=== PATIENT | male | born 1965 | race Caucasian/White ===

== ENCOUNTER 2022-08-04 02:58 | Observation (INO) | payer MEDICARE ==
[2022-08-04] MEDS ORDERED: Acetaminophen-Codeine 300-30mg TAB PO STA (03:37)
[2022-08-04] MEDS ORDERED: SULFAMETHOX-TMP 800-160MG 1 EACH TAB PO STA (03:37)
[2022-08-04] MEDS ORDERED: ACETAMINOPHEN TAB 325 MG TAB PO STA (03:37)
[2022-08-04] MEDS ORDERED: IBUPROFEN 800 MG TAB PO STA (03:37)
[2022-08-04] MEDS ORDERED: MORPHINE SULFATE 4 MG/ML SYRINGE IV STA (03:38)
[2022-08-04] MEDS ORDERED: SODIUM CHLORIDE 0.9% 1,000 ML IV STA ×2 (03:38)
[2022-08-04] MEDS ORDERED: KETOROLAC 15 MG/ML 1 ML VIAL IVP STA (03:40)
--- NOTE | 2022-08-04 04:02 | ED ---
Back Pain HPI - General Chief Complaint: Back Pain/Injury Stated Complaint: Back Pain Time Seen by Provider: 08/04/22 03:20 Source: patient, RN notes reviewed, old records reviewed Limitations: no limitations - History of Present Illness Initial Comments: This is a 56-year-old male to the emergency department for evaluation presented today for evaluation regards to severe back pain history of back surgery and acute on chronic back pain today. Patient states he fell 2 days ago and pain has been getting worse over the last 2 days increased anxiety and recently off pressure medication was increased severe depression and anxiety. Back pain is severe with numbness until he down both legs to the point was having difficulty moving them. No loss of bowel or bladder. Patient does not have physician care in the area as he is new to the area he has no primary care with difficulty finding primary care as well as specialty care. Patient has no psychiatrist or psychiatry care and no pain control care of orthopedic care MD Complaint: back pain, back injury, fall (2 days ago) -: year(s) (Back pain for years) Similar Symptoms Previously: Yes Place: home Radiation: buttocks, left leg, right leg Severity: moderate Severity scale (1-10): 7 Improves With: none Worsens With: movement, sitting upright Context: fall Associated Symptoms: denies other symptoms - Related Data Allergies Allergy/AdvReac Type Severity Reaction Status Date / Time Penicillins Allergy Rash/Hives Verified 08/04/22 03:41 Review of Systems ROS Statement: Those systems with pertinent positive or pertinent negative responses have been documented in the HPI. ROS Other: All systems not noted in ROS Statement are negative. Past Medical History Past Medical History: Hypertension, Musculoskeletal Disorder Additional Past Medical History / Comment(s): DEPRESSION History of Any Multi-Drug Resistant Organisms: None Reported Past Surgical History: Back Surgery Past Psychological History: Depression Smoking Status: Never smoker Past Alcohol Use History: Daily Past Drug Use History: Marijuana General Exam Limitations: no limitations General appearance: alert, in no apparent distress Head exam: Present: atraumatic, normocephalic, normal inspection Eye exam: Present: normal appearance, PERRL, EOMI. Absent: scleral icterus, conjunctival injection, periorbital swelling ENT exam: Present: normal exam, mucous membranes moist Neck exam: Present: normal inspection. Absent: tenderness, meningismus, lymphadenopathy Respiratory exam: Present: normal lung sounds bilaterally. Absent: respiratory distress, wheezes, rales, rhonchi, stridor Cardiovascular Exam: Present: regular rate, normal rhythm, normal heart sounds. Absent: systolic murmur, diastolic murmur, rubs, gallop, clicks GI/Abdominal exam: Present: soft, normal bowel sounds. Absent: distended, tenderness, guarding, rebound, rigid Extremities exam: Present: normal inspection, full ROM, normal capillary refill. Absent: tenderness, pedal edema, joint swelling, calf tenderness Back exam: Present: normal inspection Neurological exam: Present: alert, oriented X3, CN II-XII intact Psychiatric exam: Present: normal affect, normal mood Skin exam: Present: warm, dry, intact, normal color. Absent: rash Course Vital Signs 08/04/22 03:04 Temperature 97.8 F Pulse Rate 95 Respiratory 16 Rate Blood Pressure 153/103 O2 Sat by Pulse 94 L Oximetry - Reevaluation(s) Reevaluation #1: 08/04/22 04:11 medical record is reviewed Reevaluation #2: 08/04/22 04:11 Symptoms are improved Reevaluation #3: 08/04/22 04:12 Patient informed results and questions answered Reevaluation #4: 08/04/22 04:12 Differential Back Pain: Strain, zoster, cauda equina syndrome, epidural abscess, vertebral osteomyelitis, discitis, fracture, subluxation, disc herniation, DJD, spinal stenosis, dissection, AAA, pancreatitis, peptic ulcer disease, pyelonephritis, kidney stone, this is not meant to be an all-inclusive list. Reevaluation #5: 08/04/22 04:12 Was pt. sent in by a medical professional or institution? @ -no Did you speak to anyone other than the patient for history? @ -no Did you review nursing and triage notes? @ -agree Were old charts reviewed? @ -no Differential Diagnosis? @ -prior EKG interpreted by me (3pts min.)? @ -[none] X-rays interpreted by me (1pt min.)? @ -[none] CT interpreted by me (1pt min.)? @ -[none] U/S interpreted by me (1pt. min.)? @ -[none] What testing was considered but not performed? (CT, X-rays, U/S, labs)? Why? @ no What meds were considered but not given? Why? @ -[none] Did you discuss the management of the patient with other professionals? @ -no Did you reconcile home meds? @ -[none] Was smoking cessation discussed for >3mins.? @ -[none] Was critical care preformed (if so, how long)? @ -[none] Were there social determinants of health that impacted care today? How? (Homelessness, low income, unemployed, alcoholism, drug addiction, transportation, low edu. Level, literacy, decrease access to med. care, fpc, rehab)? @ -no Was there de-escalation of care discussed even if they declined? (Discuss DNR or withdrawal of care, Hospice)? @ -no What co-morbidities impacted this encounter? (DM, HTN, Smoking, COPD, CAD, Cancer, CVA, Hep., AIDS, mental health diagnosis, sleep apnea, morbid obesity)? @ -no Was patient admitted / discharged? @ -admit Undiagnosed new problem with uncertain prognosis? @ -[none] Drug Therapy requiring intensive monitoring for toxicity (Heparin, Nitro, Insulin, Cardizem)? @ -[none] Were any procedures done? @ -[none] Diagnosis/symptom? @ -[default] Acute, or Chronic, or Acute on Chronic? @ -[default] Uncomplicated (without systemic symptoms) or Complicated (systemic symptoms)? @ -[default] Side effects of treatment? @ -[none] Exacerbation, Progression, or Severe Exacerbation] @ -[no] Poses a threat to life or bodily function? @ -[no] - Consultations Consultation #1: Spoke with admitting physician who agree to admit this patient Medical Decision Making - Medical Decision Making 56 male to be admitted for back pain chronic back pain increasing weakness severe depression for psychiatric evaluation in hopes of finding primary care provider and pain control - Lab Data Result diagrams: 08/04/22 04:04 08/04/22 04:04 Lab Results 08/04/22 08/04/22 08/04/22 Range/Units 04:04 04:04 04:04 WBC 4.8 (3.8-10.6) k/uL RBC 4.56 (4.30-5.90) m/uL Hgb 15.5 (13.0-17.5) gm/dL Hct 44.4 (39.0-53.0) % MCV 97.4 (80.0-100.0) fL MCH 34.1 (25.0-35.0) pg MCHC 35.0 (31.0-37.0) g/dL RDW 11.9 (11.5-15.5) % Plt Count 153 (150-450) k/uL MPV 7.6 Neutrophils % 54 % Lymphocytes % 36 % Monocytes % 4 % Eosinophils % 2 % Basophils % 2 % Neutrophils # 2.6 (1.3-7.7) k/uL Lymphocytes # 1.7 (1.0-4.8) k/uL Monocytes # 0.2 (0-1.0) k/uL Eosinophils # 0.1 (0-0.7) k/uL Basophils # 0.1 (0-0.2) k/uL PT 11.6 (9.0-12.0) sec INR 1.1 (<1.2) APTT 26.8 (22.0-30.0) sec Sodium 144 (137-145) mmol/L Potassium 4.3 (3.5-5.1) mmol/L Chloride 108 H (98-107) mmol/L Carbon Dioxide 23 (22-30) mmol/L Anion Gap 13 mmol/L BUN 8 L (9-20) mg/dL Creatinine 0.61 L (0.66-1.25) mg/dL Est GFR (CKD-EPI)AfAm >90 (>60 ml/min/1.73 sqM) Est GFR (CKD-EPI)NonAf >90 (>60 ml/min/1.73 sqM) Glucose 122 H (74-99) mg/dL Calcium 8.8 (8.4-10.2) mg/dL Phosphorus 3.1 (2.5-4.5) mg/dL Magnesium 1.9 (1.6-2.3) mg/dL Total Bilirubin 0.6 (0.2-1.3) mg/dL AST 77 H (17-59) U/L ALT 42 (4-49) U/L Alkaline Phosphatase 105 (38-126) U/L Total Protein 8.2 (6.3-8.2) g/dL Albumin 4.5 (3.5-5.0) g/dL Serum Alcohol 271 H* mg/dL - Radiology Data Radiology results: report reviewed (CT lumbar spine), image reviewed Disposition Clinical Impression: Mechanical back pain, Sciatica, Mid back pain, Lumbar radiculopathy, Alcohol intoxication Disposition: ADMITTED IP TO THIS HOSP Condition: Fair Is patient prescribed a controlled substance at d/c from ED?: No Time of Disposition: 04:25
[2022-08-04 04:10] LABS: Basophils # (A) 0.1 k/uL (0-0.2); Basophils % (A) 2 %; Eosinophils # (A) 0.1 k/uL (0-0.7); Eosinophils % (A) 2 %; HCT 44.4 % (39.0-53.0); HGB 15.5 gm/dL (13.0-17.5); Lymphocytes # (A) 1.7 k/uL (1.0-4.8); Lymphocytes % (A) 36 %; MCH 34.1 pg (25.0-35.0); MCV 97.4 fL (80.0-100.0); Mean Platelet Volume 7.6; Monocytes # (A) 0.2 k/uL (0-1.0); Monocytes % (A) 4 %; Neutrophils # (A) 2.6 k/uL (1.3-7.7); Neutrophils % (A) 54 %; Platelet Count 153 k/uL (150-450); RBC 4.56 m/uL (4.30-5.90); RDW 11.9 % (11.5-15.5); WBC 4.8 k/uL (3.8-10.6)
[2022-08-04] MEDS ORDERED: MORPHINE SULFATE 4 MG/ML SYRINGE IV PRN (04:14)
[2022-08-04] MEDS ORDERED: NALOXONE 0.4 MG/ML 1 ML VIAL IV PRN (04:14)
[2022-08-04] MEDS ORDERED: SODIUM CHLORIDE 0.9% 1,000 ML IV SCH (04:15)
[2022-08-04 04:19] LABS: INR 1.1 (<1.2); Prothrombin Time 11.6 sec (9.0-12.0)
[2022-08-04 04:20] LABS: Partial Thromboplastin Time 26.8 sec (22.0-30.0)
[2022-08-04 04:23] LABS: ALT 42 U/L (4-49); AST 77 U/L (17-59); African American GFR (CKD) >90 (>60 ml/min/1.73 sqM); Albumin 4.5 g/dL (3.5-5.0); Alkaline Phosphatase 105 U/L (38-126); Anion Gap 13 mmol/L; Blood Urea Nitrogen 8 mg/dL (9-20); Calcium 8.8 mg/dL (8.4-10.2); Carbon Dioxide 23 mmol/L (22-30); Chloride 108 mmol/L (98-107); Glucose 122 mg/dL (74-99); Magnesium 1.9 mg/dL (1.6-2.3); Non-African American GFR(CKD) >90 (>60 ml/min/1.73 sqM); Phosphorus 3.1 mg/dL (2.5-4.5); Potassium 4.3 mmol/L (3.5-5.1); Sodium 144 mmol/L (137-145); Total Bilirubin 0.6 mg/dL (0.2-1.3); Total Protein 8.2 g/dL (6.3-8.2)
[2022-08-04 04:38] LABS: Alcohol 271 mg/dL
[2022-08-04] MEDS ORDERED: LORazepam 2 MG/ML INJ IV PRN ×3 (04:45)
[2022-08-04] MEDS ORDERED: THIAMINE 100 MG/ML 2 ML VIAL IM STA (04:45)
[2022-08-04 05:14] LABS: Appearance,Urine Clear (Clear); Bilirubin,Urine Negative (Negative); Blood,Urine Negative (Negative); Color,Urine Light Yellow; Glucose,Urine (UA) Negative (Negative); Ketones,Urine Negative (Negative); Leukocyte Esterase,Urine Negative (Negative); Nitrite,Urine Negative (Negative); Protein,Urine Negative (Negative); Specific Gravity,Urine 1.008 (1.001-1.035); Urobilinogen,Urine <2.0 mg/dL (<2.0)
--- NOTE | 2022-08-04 05:19 | CT ---
EXAMINATION TYPE: CT lumbar spine wo con DATE OF EXAM: 08/04/2022 COMPARISON: None HISTORY: Fall CT DLP: 1489.6 mGycm Automated exposure control for dose reduction was used. Images obtained from the level of T12-S1 vertebra with no contrast. The lumbar vertebrae have normal alignment. There is disc prosthesis at L4-5 and L5-S1. There is paola and screws fusing posteriorly the lumbar spine from L4 to S1. No compression fracture. There is disc space narrowing in the mid and lower lumbar spine. Lumbar paraspinal mass. There is laminectomy defec t. The upper sacroiliac joints appear intact. IMPRESSION: Post surgical changes. Multilevel fusion surgery. No fracture seen no focal bone destruction.
[2022-08-04 05:45] LABS: Amphetamine Screen,Urine Not Detected (NotDetected); Barbiturate Screen,Urine Not Detected (NotDetected); Benzodiazepines Screen,Urine Detected (NotDetected); Cocaine Screen,Urine Not Detected (NotDetected); Methadone Screen, Urine Not Detected (NotDetected); Opiate Screen,Urine Detected (NotDetected); Oxycodone Screen, Urine Not Detected (NotDetected); Phencyclidine Screen,Urine Not Detected (NotDetected); Tricyclic Antidepressant,Urine Detected (NotDetected); Urn Cannabinoid Scrn Detected (NotDetected)
[2022-08-04] MEDS: FOLIC ACID 1 MG TAB PO SCH (08:00)
[2022-08-04] MEDS: MULTIVITAMINS, THERA 1 EACH TAB PO SCH (08:01)
[2022-08-04] MEDS: CYCLOBENZAPRINE 10 MG TAB PO SCH ×3 (10:27→20:53)
[2022-08-04] MEDS: DEXAMETHASONE SOD PHOSPHATE 4 MG/ML 1 ML VIAL IVP SCH ×3 (11:19→23:54)
--- NOTE | 2022-08-04 11:21 | P.CNOR ---
History of Present Illness - [facility] Consult date: 08/04/22 Requesting physician: Alejandro Brownlee Consult reason: back pain History of present illness: Patient is a 56-year-old male who presents to the emergency department earlier today with chief complaint of severe back pain and previous history of 3 spine surgeries. Patient was seen at bedside this morning the emergency department lying semirecumbent position. Patient says over the past 2 weeks he has had increasing low back pain. Patient says she was walking out the beach when he noticed he had a sharp pain radiating down both legs. Patient denies any falls/traumas. Patient says that he does use marijuana before bed at night and that this does help with his pain somewhat. Patient also mentions about 2 days ago he fell and noticed worsening in his low back pain. Patient states he does have numbness/tingling in both of his legs and states that it is mainly in the front of his thighs. Patient says he has had 3 previous spine surgeries which were all performed in [place], [place] where all of his children reside. He said surgery was performed by Dr. Shrestha. Patient notes that he has had some increased weakness in both his lower extremities over the past couple weeks. Patient notes that low back pain and pain down his legs. patient says the pain worsens when he changes positions. Patient denies any saddle anesthesia. Patient denies chest pain, fever, shortness breath, nausea, vomiting, change in vision, loss of bowel/bladder control. Past Medical History Past Medical History: Hypertension, Musculoskeletal Disorder Additional Past Medical History / Comment(s): DEPRESSION History of Any Multi-Drug Resistant Organisms: None Reported Past Surgical History: Back Surgery Past Psychological History: Depression Smoking Status: Never smoker Past Alcohol Use History: Daily Past Drug Use History: Marijuana Medications and Allergies Home Medications Medication Instructions Recorded Confirmed Type ALPRAZolam [Xanax] 1 mg PO TID 08/04/22 08/04/22 History Cyclobenzaprine [Flexeril] 10 mg PO TID 08/04/22 08/04/22 History Diltiazem Cd [Cardizem CD] 180 mg PO PC-SUPPER 08/04/22 08/04/22 History buPROPion XL [Wellbutrin XL] 300 mg PO PC-SUPPER 08/04/22 08/04/22 History Allergies Allergy/AdvReac Type Severity Reaction Status Date / Time Penicillins Allergy Rash/Hives Verified 08/04/22 07:21 Physical Examination Inspection: Negative for any open fractures, significant ecchymosis/erythema/ulcers. Sensation: Patient does have diminished sensation over the bilateral lower extremities specifically at the L3/L4 dermatome. Sensation is able, symmetric, bilaterally intact throughout the upper extremities Palpation: There is significant tenderness to palpation to the bilateral SI joints as well as the lower lumbar spine at midline. Nontender to palpation throughout rest exam Range of motion: Patient has full range of motion bilateral upper extremities on exam. Patient has full range motion bilateral lower extremities and ankle dorsi/plantar flexion. There is some range of motion bilateral hip flexion/extension and knee flexion/extension due to pain/weakness that is referred to buttocks/ low back. Motor: 4-/5 in bilateral lower extremity resisted hip flexion/extension. 4/5 in resisted knee flexion/extension bilaterally. 4+/5 in resisted ankle dorsi/plantar flexion bilaterally. 5/5 in all major motor groups in bilateral upper extremities Neurovascular status: Radial pulses intact, 2+ bilaterally. Cap refill under 3 seconds in digits of UE. Dorsalis pedis pulse present bilaterally. Special tests: Negative Edu bilaterally. Negative clonus bilaterally. Negative Homans bilaterally. Results - Labs Labs: Abnormal Lab Results - Last 24 Hours (Table) 08/04/22 08/04/22 Range/Units 04:04 04:58 Chloride 108 H (98-107) mmol/L BUN 8 L (9-20) mg/dL Creatinine 0.61 L (0.66-1.25) mg/dL Glucose 122 H (74-99) mg/dL AST 77 H (17-59) U/L Urine Opiates Screen Detected H (NotDetected) U Tricyclic Antidepress Detected H (NotDetected) U Benzodiazepines Scrn Detected H (NotDetected) U Marijuana (THC) Screen Detected H (NotDetected) Serum Alcohol 271 H* mg/dL H & H 08/04/22 Range/Units 04:04 Hgb 15.5 (13.0-17.5) gm/dL Hct 44.4 (39.0-53.0) % Coagulation 08/04/22 Range/Units 04:04 INR 1.1 (<1.2) Result Diagrams: 08/04/22 04:04 08/04/22 04:04 - Diagnostic results CT Scan - lumbar: report reviewed (CT of lumbar spine does reveal previous decompression fusion from L4-S1. Negative for any vertebral fractures.), image reviewed Assessment and Plan Assessment: 1. Low back pain; bilateral lower extremity paresthesia 2. History of previous decompression fusion L4 to S1 Plan: 1. Low back pain; bilateral lower extremity paresthesia - patient stable at bedside this morning. CT of lumbar spine does reveal previous decompression fusi on from L4-S1. Negative for any vertebral fractures. Screws and hardware appear intact at this time. At this time we do not recommend any emergent/urgent orthopedic surgical intervention. We do recommend conservative measures at this time with pain medication as well as steroids to attempt to al leviate symptoms. We'll continue to follow patient during his stay in hospital. 2. Appreciate medical management 3. Pain management - gabapentin; Flexeril 4. DVT prophylaxis - mechanical 5. GI recs 6. PT/OT - weightbearing as tolerated with walker and assistance 7. Appreciate consult Time with Patient: Less than 30
[2022-08-04] MEDS ORDERED: ONDANSETRON 4 MG/2 ML VIAL IVP PRN (11:37)
[2022-08-04] MEDS: ALPRAZolam 1 MG TAB PO SCH ×3 (11:45→20:53)
[2022-08-04] MEDS: PANTOPRAZOLE 40 MG/10 ML VIAL IVP SCH ×2 (13:30→20:52)
[2022-08-04] MEDS ORDERED: buPROPion XL 300 MG TAB.ER.24H PO STA (13:42)
--- NOTE | 2022-08-04 13:54 | P.CN ---
Psychiatric Consult - . Consult date: 08/04/22 Consult:: 08/04/22 13:53 IDENTIFYING DATA: This patient is a , on disability, 56-year-old male with a significant history of depression, anxiety, and multiple back surgeries who presented to our hospital for a reent fall and weakness in his legs. HISTORY OF PRESENT ILLNESS: The patient presented to the hospital .on 08/04/2021, presenting to the emergency department for evaluation after a recent fall and worsening weakness and numbness in his bilateral lower extremities. Psychiatry has been consulted for a mental health evaluation as the patient reported a significant history of severe depression and anxiety and currently has no outpatient psychiatric provider. Upon evaluation by this provider on the medical floor, the patient reports that he has been dealing with depression for most of his life. He states that he has been prescribed his current regimen of Wellbutrin and Xanax by his previous psychiatrist as well as his previous primary care physician Dr. Mccain in [place] for the past 25 years. Furthermore, the patient reports that he has been dealing with the loss of his girlfriend who a few years ago. He also states that he is currently worried about his mother's current ailing health. He recently relocated from [place] to [place], [place] with his sister. In regards to depressive symptoms, the patient reports crying episodes, low motivation, low energy, irregular sleep, and occasional feelings of hopelessness and helplessness. He is currently denying any suicidal or homicidal ideation, intention, and/or plan. He does report a history of prior suicide attempt last suicide attempt being 2 years ago after attempting to overdose on multiple pills. He reports a total of 3 suicide attempts in the past. In regards other mood symptoms, the patient denies any significant history of bipolar disorder. He reports no overt manic episodes. He denies any peers excessive energy, grandiosity, or increased goal-directed activity. The patient is not endorsing any significant symptoms of auditory or visual hallucinations. He denies any history of psychosis. He reports no paranoia or other delusions. PAST PSYCHIATRIC HISTORY: Patient has a history of depression and anxiety. Only on a regimen of bupropion 300 mg at suppertime and Xanax 1 mg 3 times daily. He reports being previously prescribed Prozac. He reports 2 inpatient psychiatric admissions with the last one being 3 years ago in [place]. Patient denies any current psychiatric outpatient follow-up. He reports 3 prior attempts at suicide. PAST MEDICAL HISTORY: Past Medical History: Hypertension, Musculoskeletal Disorder Additional Past Medical History / Comment(s): DEPRESSION History of Any Multi-Drug Resistant Organisms: None Reported Past Surgical History: Back Surgery Past Psychological History: Depression Smoking Status: Never smoker Past Alcohol Use History: Daily Past Drug Use History: Marijuana ALLERGIES: Penicillin CHEMICAL DEPENDENCY HISTORY: The patient denies any tobacco use. He reports daily marijuana use. He also reports 3-4 beers per day when he is drinking. He reports that this is not every day. He denies any history of rehab. He denies any illicit drug use. FAMILY PSYCHIATRIC/SUBSTANCE USE HISTORY: No reported family history SOCIAL HISTORY: Patient was born and raised in [place], [place]. He recently relocated back to [place], [place] with his sister. His sister currently works as a teacher. He is on disability. He reports no legal issues. He reports that he was for 9 years however 10 years ago. He sta sabine that he is Taoist. He has 3 adult children and 5 grandchildren. MENTAL STATUS EXAM: General Appearance: Patient appears to be stated age is alert, pleasant, and cooperative. Patient appears to have fair hygiene and grooming wearing hospital gown with fair eye contact. Patient has multiple tattoos. Behavior: Patient is calmly lying in bed without any agitated behavior. During the interview, the patient vomits due to nausea. Speech: Patient's speech is fluent and nonpressured. Mood/Affect: Patient reports their mood is "depressed", affect is euthymic. Suicidality/Homicidality: Patient is vehemently denying any current suicidal or homicidal ideation, intention, and/or plan. Perceptions: Patient denies any visual hallucinations and denies any auditory hallucinations Though content/process: There is no evidence of any delusional thought content and thought process is linear and goal-directed. Memory and concentration: AOX3, grossly intact for the purposes of this session. Can spell "WORLD" backwards Judgment and insight: Fair IMPRESSIONS: Major depressive disorder, recurrent, moderate Anxiety disorder, unspecified Chronic benzodiazepine use Cannabis use disorder PLAN: -Continue your medical management and evaluation -At this time patient DOES NOT meet criteria for inpatient psychiatric admission. The patient is not presenting with imminent risk of harm to self or others. He is future and goal oriented. He denies any suicidal or homicidal ideation, intention, and/or plan. He is not overtly manic or psychotic. -Delirium precautions recommended with patient including - avoiding use of narcotics and GERIATRICS PHYSICIAN sedatives, limit anticholinergic medications when possible, frequent re-orientation, minimize use of restraints, open window shades during the day and close them at night -Would recommend the following medication changes/additions: Change Wellbutrin to 300 mg by mouth every morning. Change discussed with the patient. Explained to the patient that taking Wellbutrin at bedtime increases the risk of insomnia as a side effect. Continue Xanax 1 mg by mouth 3 times a day for anxiety. Discussed with the patient the risks of increased falls with benzodiazepine medication. The patient is pre-contemplative on stopping his benzodiazepines. We will defer to outpatient psychiatric treatment in order to adjust medications. -Recommend social work/case management to provide patient with resources for outpatient psychiatric follow-up. -Psychiatry will sign off at this point, please contact with any questions. Vital Signs Temp 97.4 F L 08/04/22 11:19 Pulse 73 08/04/22 13:36 Resp 18 08/04/22 11:19 BP 151/96 08/04/22 11:19 Pulse Ox 93 L 08/04/22 11:19 FiO2 Intake & Output 08/03/22 08/04/22 08/04/22 18:59 06:59 18:59 Weight 108.862 kg Other: # Voids 1 Laboratory Results WBC 4.8 k/uL (3.8-10.6) 08/04/22 04:04 RBC 4.56 m/uL (4.30-5.90) 08/04/22 04:04 Hgb 15.5 gm/dL (13.0-17.5) 08/04/22 04:04 Hct 44.4 % (39.0-53.0) 08/04/22 04:04 MCV 97.4 fL (80.0-100.0) 08/04/22 04:04 MCH 34.1 pg (25.0-35.0) 08/04/22 04:04 MCHC 35.0 g/dL (31.0-37.0) 08/04/22 04:04 RDW 11.9 % (11.5-15.5) 08/04/22 04:04 Plt Count 153 k/uL (150-450) 08/04/22 04:04 MPV 7.6 08/04/22 04:04 Neutrophils % 54 % 08/04/22 04:04 Lymphocytes % 36 % 08/04/22 04:04 Monocytes % 4 % 08/04/22 04:04 Eosinophils % 2 % 08/04/22 04:04 Basophils % 2 % 08/04/22 04:04 Neutrophils # 2.6 k/uL (1.3-7.7) 08/04/22 04:04 Lymphocytes # 1.7 k/uL (1.0-4.8) 08/04/22 04:04 Monocytes # 0.2 k/uL (0-1.0) 08/04/22 04:04 Eosinophils # 0.1 k/uL (0-0.7) 08/04/22 04:04 Basophils # 0.1 k/uL (0-0.2) 08/04/22 04:04 PT 11.6 sec (9.0-12.0) 08/04/22 04:04 INR 1.1 (<1.2) 08/04/22 04:04 APTT 26.8 sec (22.0-30.0) 08/04/22 04:04 Sodium 144 mmol/L (137-145) 08/04/22 04:04 Potassium 4.3 mmol/L (3.5-5.1) 08/04/22 04:04 Chloride 108 mmol/L (98-107) H 08/04/22 04:04 Carbon Dioxide 23 mmol/L (22-30) 08/04/22 04:04 Anion Gap 13 mmol/L 08/04/22 04:04 BUN 8 mg/dL (9-20) L 08/04/22 04:04 Creatinine 0.61 mg/dL (0.66-1.25) L 08/04/22 04:04 Est GFR (CKD-EPI)AfAm >90 (>60 ml/min/1.73 sqM) 08/04/22 04:04 Est GFR (CKD-EPI)NonAf >90 (>60 ml/min/1.73 sqM) 08/04/22 04:04 Glucose 122 mg/dL (74-99) H 08/04/22 04:04 Calcium 8.8 mg/dL (8.4-10.2) 08/04/22 04:04 Phosphorus 3.1 mg/dL (2.5-4.5) 08/04/22 04:04 Magnesium 1.9 mg/dL (1.6-2.3) 08/04/22 04:04 Total Bilirubin 0.6 mg/dL (0.2-1.3) 08/04/22 04:04 AST 77 U/L (17-59) H 08/04/22 04:04 ALT 42 U/L (4-49) 08/04/22 04:04 Alkaline Phosphatase 105 U/L (38-126) 08/04/22 04:04 Total Protein 8.2 g/dL (6.3-8.2) 08/04/22 04:04 Albumin 4.5 g/dL (3.5-5.0) 08/04/22 04:04 Urine Color Light Yellow 08/04/22 04:58 Urine Appearance Clear (Clear) 08/04/22 04:58 Urine pH 5.0 (5.0-8.0) 08/04/22 04:58 Ur Specific [place] 1.008 (1.001-1.035) 08/04/22 04:58 Urine Protein Negative (Negative) 08/04/22 04:58 Urine Glucose (UA) Negative (Negative) 08/04/22 04:58 Urine Ketones Negative (Negative) 08/04/22 04:58 Urine Blood Negative (Negative) 08/04/22 04:58 Urine Nitrite Negative (Negative) 08/04/22 04:58 Urine Bilirubin Negative (Negative) 08/04/22 04:58 Urine Urobilinogen <2.0 mg/dL (<2.0) 08/04/22 04:58 Ur Leukocyte Esterase Negative (Negative) 08/04/22 04:58 Urine Opiates Screen Detected (NotDetected) H 08/04/22 04:58 Ur Oxycodone Screen Not Detected (NotDetected) 08/04/22 04:58 Urine Methadone Screen Not Detected (NotDetected) 08/04/22 04:58 Ur Propoxyphene Screen Not Detected (NotDetected) 08/04/22 04:58 Ur Barbiturates Screen Not Detected (NotDetected) 08/04/22 04:58 U Tricyclic Antidepress Detected (NotDetected) H 08/04/22 04:58 Ur Phencyclidine Scrn Not Detected (NotDetected) 08/04/22 04:58 Ur Amphetamines Screen Not Detected (NotDetected) 08/04/22 04:58 U Methamphetamines Scrn Not Detected (NotDetected) 08/04/22 04:58 U Benzodiazepines Scrn Detected (NotDetected) H 08/04/22 04:58 Urine Cocaine Screen Not Detected (NotDetected) 08/04/22 04:58 U Marijuana (THC) Screen Detected (NotDetected) H 08/04/22 04:58 Serum Alcohol 271 mg/dL H* 08/04/22 04:04 Allergies Allergy/AdvReac Type Severity Reaction Status Date / Time Penicillins Allergy Rash/Hives Verified 08/04/22 07:21 08/04/22 13:54
--- NOTE | 2022-08-04 14:40 | P.HPIM ---
History of Present Illness H&P Date: 08/04/22 This is a 56-year-old male who presented to the emergency department with increased back pain. Patient reports he has a history of back surgeries although has been worse today and also patient has fallen over 2-3 times the last few days. Patient reports he does not have a primary care provider in this area nor psychiatrist as he was living in [place]. Patient reports he had a girlfriend of 10 years that has recently just committed suicide and patient has been having some binge drinking and feelings of increased depression. Patient does take Wellbutrin for depression and has not been having his medications. Patient also has not been taking his medications for blood pressure which he is on Cardizem 3 times daily and again has no primary care provider to write these prescriptions. Patient also came in intoxicated with an alcohol level of 271 and urine drug screen was positive for opiates, TCA, benzos, and marijuana. Patient reports he has a history of hypertension, chronic back pain, depression. Patient denies tobacco use and does not normally drink alcohol every day although has been binge drinking and drinking more frequently since the passing of his girlfriend. Patient also admits to marijuana use. Patient was admitted for EtOH and chronic back pain. Orthopedics consulted. CT of the lumbar spine was done showing postsurgical changes with multilevel fusion surgery with no fractures or focal bone destruction noted. Patient was placed on CIWA protocol and during exam not having active withdrawals although is nauseated and not able to tolerate diet. Will resume home medications and psychiatry was consulted as well. Review Of Systems: Constitutional: No fever, no chills, no night sweats. No weight change. No weakness, fatigue or lethargy. No daytime sleepiness. EENT: No headache. No blurred vision or double vision, no loss of vision. No loss of Hearing, no ringing in the ears, no dizziness. No nasal drainage or congestion. No epistaxis. No sore throat. Lungs: No shortness of breath, cough, no sputum production. No wheezing. Cardiovascular: No chest pain, no lower extremity edema. No palpitations. No paroxysmal nocturnal dyspnea. No orthopnea. No lightheadedness or dizziness. No syncopal episodes. Abdominal: No abdominal pain. Reports some nausea and an episode of vomiting. No diarrhea. No constipation. No bloody or tarry stools.. No loss of appetite. Genitourinary: No dysuria, increased frequency, urgency. No urinary retention. Musculoskeletal: No myalgias. No muscle weakness, no gait dysfunction, reports frequent falls 3 over the last week. Reports chronic back pain. No neck pain. Integumentary: No wounds, no lesions. No rash or pruritus. No unusual bruising. No change in hair or nails. Neurologic: No aphasia. No facial droop. No change in mentation. No head injury. No headache. No paralysis. No paresthesia. Psychiatric: Reports depression. No anxiety. No mood swings. Endocrine: No abnormal blood sugars. No weight change. No excessive sweating or thirst. No cold intolerance. PHYSICAL EXAMINATION: GENERAL: The patient is alert and oriented x4, Well developed, well nourished. Obese HEENT: Pupils are round and equally reacting to light. EOMI. no scleral icterus. No conjunctival pallor. Normocephalic, atraumatic. No pharyngeal erythema. No thyromegaly. CARDIOVASCULAR: S1 and S2 muffled PULMONARY: diminished breath sounds bilaterally with no wheezing or rhonchi noted. ABDOMEN: soft. Nontender on exam. obese. non-distended, normoactive bowel sounds. No palpable organomegaly. MUSCULOSKELETAL: No joint swelling or deformity. EXTREMITIES: No cyanosis, clubbing, or pedal edema. NEUROLOGICAL: Gross neurological examination did not reveal any focal deficits. Diffuse weakness SKIN: No rashes. Assessment: Acute alcohol intoxication Chronic back pain Frequent falls 3 this week Binge drinking THC use Hypertension, uncontrolled, has been out of medications Noncompliance with medications and follow-up, currently has no PCP GI prophylaxis DVT prophylaxis Full code Plan: Recommend to continue with current medications and management and monitor for any alcohol withdrawal Patient was placed on CIWA protocol although does better with Xanax that he has been taking chronically for 20 years, and will resume home medications. Patient with some nausea and vomiting will add Protonix IV twice a day and continue fluids and slowly advance diet as tolerated. Recommend continue with anti-emetics. Orthopedics evaluated the patient recommending conservative management and pain control with no plans for surgical intervention at this time. Patient was having some muscle spasms in his legs causing him weakness and will also see the patient in the outpatient setting Patient with no primary care provider new to the area and will provide resources on discharge Patient with elevated blood pressure and reports he takes Cardizem 3 times daily although has been out of meds and medications have been resumed recommend to monitor blood pressures closely Discussed with the patient at length about medication compliance and following up with primary care provider to establish along with [facility] in the outpatient setting for resources. Social work to follow to provide resources on discharge Encouraged increased activity as tolerated and encouraged oral intake once nausea has subsided Discussed the importance of medication compliance and the medications he is on with the adverse risks and reactions including Wellbutrin with drinking. Patient verbalized understanding We'll continue to follow and reevaluate in the morning The impression and plan of care has been dictated by Louise Alvarado, nurse practitioner as directed. Dr. Stanley MD I have performed a history and examination and MDM of this patient, discussed the same with the dictator, and agree with the dictator's assessment and plan as written ,documented as a scribe. Based on total visit time, I have performed more than 50% of the visit. Any additional findings or plans will be noted. Past Medical History Past Medical History: Hypertension, Musculoskeletal Disorder Additional Past Medical History / Comment(s): DEPRESSION History of Any Multi-Drug Resistant Organisms: None Reported Past Surgical History: Back Surgery Past Psychological History: Depression Smoking Status: Never smoker Past Alcohol Use History: Daily Past Drug Use History: Marijuana Medications and Allergies Home Medications Medication Instructions Recorded Confirmed Type ALPRAZolam [Xanax] 1 mg PO TID 08/04/22 08/04/22 History Cyclobenzaprine [Flexeril] 10 mg PO TID 08/04/22 08/04/22 History Diltiazem Cd [Cardizem CD] 180 mg PO PC-SUPPER 08/04/22 08/04/22 History buPROPion XL [Wellbutrin XL] 300 mg PO PC-SUPPER 08/04/22 08/04/22 History Allergies Allergy/AdvReac Type Severity Reaction Status Date / Time Penicillins Allergy Rash/Hives Verified 08/04/22 07:21 Physical Exam Vitals: Vital Signs Temp Pulse Resp BP Pulse Ox 08/04/22 09:41 152/98 08/04/22 09:00 143/99 08/04/22 06:52 82 16 168/115 08/04/22 05:09 75 16 132/97 92 L 08/04/22 03:04 97.8 F 95 16 153/103 94 L Intake and Output 08/03/22 08/04/22 08/04/22 22:59 06:59 14:59 Other: Weight 108.862 kg Results CBC & Chem 7: 08/04/22 04:04 08/04/22 04:04 Labs: Abnormal Lab Results - Last 24 Hours (Table) 08/04/22 08/04/22 Range/Units 04:04 04:58 Chloride 108 H (98-107) mmol/L BUN 8 L (9-20) mg/dL Creatinine 0.61 L (0.66-1.25) mg/dL Glucose 122 H (74-99) mg/dL AST 77 H (17-59) U/L Urine Opiates Screen Detected H (NotDetected) U Tricyclic Antidepress Detected H (NotDetected) U Benzodiazepines Scrn Detected H (NotDetected) U Marijuana (THC) Screen Detected H (NotDetected) Serum Alcohol 271 H* mg/dL Thrombosis Risk Factor Assmnt - DVT/VTE Prophylaxis DVT/VTE Prophylaxis: Pharmacologic Prophylaxis ordered Assessment and Plan Time with Patient: Greater than 30
[2022-08-04] MEDS: GABAPENTIN 300 MG CAP PO SCH ×2 (15:54→20:53)
[2022-08-04] MEDS: MAGNESIUM OXIDE 400 MG TAB PO SCH (15:54)
[2022-08-04] MEDS: DILTIAZEM CD 180 MG CAP.ER.24H PO SCH ×2 (18:03→18:04)
[2022-08-04] MEDS ORDERED: buPROPion XL 300 MG TAB.ER.24H PO SCH (18:30)
[2022-08-05] MEDS: DEXAMETHASONE SOD PHOSPHATE 4 MG/ML 1 ML VIAL IVP SCH ×2 (06:25→14:01)
--- NOTE | 2022-08-05 08:09 | P.PN ---
Subjective Progress Note Date: 08/05/22 Principal diagnosis: Low back pain; bilateral lower extremity paresthesia -History of previous decompression fusion L4 to S1 Patient was seen at bedside this morning lying in semirecumbent position. Patient says he is still having altered sensation/numbness/tingling in both of his thighs. Patient says some of these symptoms have been easing since yesterday. Patient says he has urinated since coming the hospital. Patient denies any new changes/areas of pain. Patient also mentions she still is having some low back pain at this time. He feels that under much better control today with pain medication. Patient denies chest pain, fever, shortness of breath, nausea, vomiting, change in vision, loss of bowel/bladder control. Objective - Vital Signs Vital signs: Vital Signs Temp 98.2 F 08/05/22 01:58 Pulse 78 08/05/22 02:22 Resp 18 08/05/22 02:22 BP 169/85 08/05/22 01:58 Pulse Ox 96 08/05/22 01:58 FiO2 Intake & Output 08/04/22 08/05/22 08/05/22 18:59 06:59 18:59 Other: # Voids 1 2 - Exam Inspection: Negative for any open fractures, significant ecchymosis/erythema/ulcers. Sensation: Patient does have diminished sensation over the bilateral lower extremities specifically at the L3/L4 dermatome. Sensation is able, symmetric, bilaterally intact throughout the upper extremities Palpation: There is significant tenderness to palpation to the bilateral SI joints as well as the lower lumbar spine at midline. Nontender to palpation throughout rest exam Range of motion: Patient has full range of motion bilateral upper extremities on exam. Patient has full range motion bilateral lower extremities and ankle do rsi/plantar flexion. There is some range of motion bilateral hip flexion/extension and knee flexion/extension due to pain/weakness that is referred to buttocks/ low back. Motor: 4-/5 in bilateral lower extremity resisted hip flexion/extension. 4/5 in resisted knee flexion/extension bilaterally. 4+/5 in resisted ankle dorsi/plantar flexion bilaterally. 5/5 in all major motor groups in bilateral upper extremities Neurovascular status: Radial pulses intact, 2+ bilaterally. Cap refill under 3 seconds in digits of UE. Dorsalis pedis pulse present bilaterally. Special tests: Negative Edu bilaterally. Negative clonus bilaterally. Negative Homans bilaterally. - Labs CBC & Chem 7: 08/04/22 04:04 08/04/22 04:04 Assessment and Plan Assessment: 1. Low back pain; bilateral lower extremity paresthesia 2. History of previous decompression fusion L4 to S1 Plan: 1. Low back pain; bilateral lower extremity paresthesia - patient stable at bedside this morning. CT of lumbar spine does reveal previous decompression fusion from L4-S1. Negative for any vertebral fractures. Screws and hardware appear intact at this time. Patient does appear to have adjacent segment diseas e. At this time we do not recommend any emergent/urgent orthopedic surgical intervention. We do recommend conservative measures at this time with pain medication as well as steroids to attempt to alleviate symptoms. Patient is stable for orthopedic standpoint for discharge home. We recommend patient to follow-up in the office with Dr. Salazar for further evaluation. 2. Appreciate medical management 3. Pain management - gabapentin; Flexeril 4. DVT prophylaxis - mechanical 5. GI recs 6. PT/OT - weightbearing as tolerated with walker and assistance 7. Appreciate consult Time with Patient: Less than 30
[2022-08-05] MEDS: CYCLOBENZAPRINE 10 MG TAB PO SCH (08:42)
[2022-08-05] MEDS: PANTOPRAZOLE 40 MG/10 ML VIAL IVP SCH (08:42)
[2022-08-05] MEDS: MULTIVITAMINS, THERA 1 EACH TAB PO SCH (08:43)
[2022-08-05] MEDS: GABAPENTIN 300 MG CAP PO SCH (08:43)
[2022-08-05] MEDS: FOLIC ACID 1 MG TAB PO SCH (08:43)
[2022-08-05] MEDS: MAGNESIUM OXIDE 400 MG TAB PO SCH (08:43)
[2022-08-05] MEDS: ALPRAZolam 1 MG TAB PO SCH (08:43)
[2022-08-05] MEDS ORDERED: buPROPion XL 300 MG TAB.ER.24H PO SCH (09:00)
[2022-08-05] MEDS ORDERED: THIAMINE 100 MG TAB PO SCH (09:00)
[2022-08-05] MEDS ORDERED: amLODIPine 10 MG TAB PO SCH (09:00)
[2022-08-05 10:05] VITALS: BP 167/96; PULSE 74; RESP 17; TEMP 98.1
--- NOTE | 2022-08-05 23:22 | P.DS ---
Providers Date of admission: 08/04/22 04:16 Attending physician: Hoa Arciniega Consults: 08/04/22 04:14 Consult Physician Routine Consulting Provider: Paulo Salazar Consult Reason/Comments: backpain Do you want consulting provider notified?: Yes Consult Physician Routine Consulting Provider: Sergio Almonte Consult Reason/Comments: psych Do you want consulting provider notified?: Yes Primary care physician: Stated None Hospital Course: Final Diagnosis Acute alcohol intoxication no evidence for acute alcohol withdrawal at this time Possible right eye conjunctivitis with clear drainage Chronic back pain Frequent falls 3 this week Binge drinking THC use Hypertension, uncontrolled, has been out of medications Noncompliance with medications and follow-up, currently has no PCP Full code Discharge Disposition Patient is stable for discharge home. Discharge instructions reviewed with patient and his sister who is at the bedside. Patient was evaluated by orthopedics who are recommending at this time for conservative management of lower back pain and patient will be discharged on gabapentin as well as decadron taper and recommending to follow up with Dr. Salazar in the office in 1 week. Patient has been cleared by psychiatry for discharge and recommending to continue on wellbutrin and change dosing to daily and also had discussed weaning off of xanax. Discussed with patient the importance of alcohol cessation and he verbalizes understanding. No signs for acute alcohol withdrawal this admission and has not required ativan in over 24 hours. Oral cardizem has been refilled and additionally patient has been started on amlodpine for blood pressure control. He currently does not have a PCP but he has a list of providers in the area and also a list for psychiatrists. He states he will be establishing care and his sister at bedside states she will be helping. Recommend follow up labs on discharge. Hospital Course This is a 56-year-old male who presented to the emergency department with increased back pain. Patient reports he has a history of back surgeries although has been worse today and also patient has fallen over 2-3 times the last few days. Patient reports he does not have a primary care provider in this area nor psychiatrist as he was living in [place]. Patient reports he had a girlfriend of 10 years that has recently just committed suicide and patient has been having some binge drinking and feelings of increased depression. Patient does take Wellbutrin for depression and has not been having his medications. Patient also has not been taking his medications for blood pressure which he is on Cardizem 3 times daily and again has no primary care provider to write these prescriptions. Patient also came in intoxicated with an alcohol level of 271 and urine drug screen was positive for opiates, TCA, benzos, and marijuana. Patient reports he has a history of hypertension, chronic back pain, depression. Patient denies tobacco use and does not normally drink alcohol every day although has been binge drinking and drinking more frequently since the passing of his girlfriend. Patient also admits to marijuana use. Patient was admitted for EtOH and chronic back pain. Orthopedics consulted. CT of the lumbar spine was done showing postsurgical changes with multilevel fusion surgery with no fractures or focal bone destruction noted. Patient was placed on CIWA protocol and during exam not having active withdrawals. Orthopedics has recommended conservative management at this time and patient did have improvement in lower back pain as well as numbness and tingling to fingers and lower extremities and will continue on oral decadron taper on discharge in addition to oral gabapentin. His medications have been refilled. He was evaluated by psychiatry who is not recommending inpatient treatment at that time. Discussed weaning off xanax and also to begin wellbutrin in the AM and not PM. Patient is also started on amlodipine for elevated blood pressures which have improved. He is tolerating diet now. He will be discharged. 08/05/2022 Patient has been evaluated overnight and has not required any ativan. He is alert x 3 and no signs for active alcohol withdrawal at this time. He has been cleared by psychiatry and also has been cleared by orthopedics. The above recommendations are in place. He is currently reporting an improvement in lower back pain currently rating about a 3/10 and also reports numbness and tingling in fingers has resolved. He denies chest pain, denies shortness of breath. He denies dizziness/lightheadedness. No nausea, vomiting or diarrhea and tolerating diet. His lungs are clear, S1 S2 auscultated and abdomen is soft and nontender. Focal neurological exam is negative. He is cleared for discharge with above men tioned recommendations. Please see medication reconciliation for a list of current medication. Thank you for allowing us to participate in the care of this patient. The impression and plan of care has been dictated by Miracle Todd, Nurse Practitioner as directed. Dr. Stanley MD I have performed a history and physical examination and medical decision making of this patient, discussed the same with the dictator, and agree with the dictators assessment and plan as written, documented as a scribe. Based on total visit time, I have performed more than 50% of this visit. Patient Condition at Discharge: Stable Plan - Discharge Summary New Discharge Prescriptions: New Multivitamins, Thera [Multivitamin (formulary)] 1 each PO DAILY #30 tab Gabapentin [Neurontin] 300 mg PO TID #9 cap amLODIPine [Norvasc] 10 mg PO DAILY #30 tab buPROPion XL [Wellbutrin XL] 300 mg PO DAILY tab Folic Acid 1 mg PO DAILY #30 tab Thiamine [Vitamin B-1] 100 mg PO DAILY #30 tab dexAMETHasone [Decadron] 4 mg PO DAILY 7 Days #5 tablet Ciprofloxacin Ophth Soln [Ciloxan 0.3% Ophth Soln] 1 drops RIGHT EYE Q4H 7 Days #2 ml Continue Diltiazem Cd [Cardizem CD] 180 mg PO PC-SUPPER ALPRAZolam [Xanax] 1 mg PO TID Changed Cyclobenzaprine [Flexeril] 10 mg PO BID PRN #6 tab PRN Reason: Muscle Spasm Discontinued buPROPion XL [Wellbutrin XL] 300 mg PO PC-SUPPER Discharge Medication List ALPRAZolam [Xanax] 1 mg PO TID 08/04/22 [History] Diltiazem Cd [Cardizem CD] 180 mg PO PC-SUPPER 08/04/22 [History] Ciprofloxacin Ophth Soln [Ciloxan 0.3% Ophth Soln] 1 drops RIGHT EYE Q4H 7 Days #2 ml 08/05/22 [Rx] Cyclobenzaprine [Flexeril] 10 mg PO BID PRN #6 tab 08/05/22 [Rx] Folic Acid 1 mg PO DAILY #30 tab 08/05/22 [Rx] Gabapentin [Neurontin] 300 mg PO TID #9 cap 08/05/22 [Rx] Multivitamins, Thera [Multivitamin (formulary)] 1 each PO DAILY #30 tab 08/05/22 [Rx] Thiamine [Vitamin B-1] 100 mg PO DAILY #30 tab 08/05/22 [Rx] amLODIPine [Norvasc] 10 mg PO DAILY #30 tab 08/05/22 [Rx] buPROPion XL [Wellbutrin XL] 300 mg PO DAILY tab 08/05/22 [Rx] dexAMETHasone [Decadron] 4 mg PO DAILY 7 Days #5 tablet 08/05/22 [Rx] Follow up Appointment(s)/Referral(s): None,Stated [Primary Care Provider] - 1-2 days Paulo Salazar DO [Doctor of Osteopathic Medicine] - 10 Days [facility] [NON-STAFF] - 1-2 Days Patient Instructions/Handouts: Sciatica (GEN), Back Pain (GEN) Activity/Diet/Wound Care/Special Instructions: Continue oral steroid taper and follow up with Dr. Salazar outpatient Total alcohol cessation recommended Avoid combining alcohol with benzodiazepine to avoid sedative effect Follow up with [facility] mental health/psychiatry on discharge Begin eye drops to right eye if develop thick crusting, increase in discomfort and redness. Follow up with a primary provider. Patient has been provided list of doctors in the area. Discharge/Stand Alone Forms: Who Do I Call?, Community Resources, Outpatient Counseling Discharge Disposition: HOME SELF-CARE
== END 2022-08-05 15:21 | disposition home or self-care (01) ==
LOC: EC 02:58 → 6NMEDSUR 04:16
PROVIDERS: ADMIT Hospitalist; ATTEND Hospitalist
DX: S39.92XA Unspecified injury of lower back, initial encounter (principal); W19.XXXA Unspecified fall, initial encounter; G89.29 Other chronic pain; R29.6 Repeated falls; F10.129 Alcohol abuse with intoxication, unspecified; Y90.8 Blood alcohol level of 240 mg/100 ml or more; Z88.0 Allergy status to penicillin; I10 Essential (primary) hypertension; F32.A Depression, unspecified; M47.819 Spondylosis without myelopathy or radiculopathy, site unspecified; Z91.14 Patient's other noncompliance with medication regimen; Z79.899 Other long term (current) drug therapy
CPT/HCPCS: 96376 ×3; 96375 ×2; 96361; 96372; 96374; 99285; 36415; 80053; 83735; 84100; 85025; 85610; 85730; 81003; 80306; 72131; G0378 ×2; G0480; J2060; J2270; J1100 ×2; J3411; J2405; J1885; C9113 ×2; 80320

== ENCOUNTER 2022-11-02 07:17 | Day surgery (SDC) | payer MEDICARE ==
[2022-11-02 08:53] VITALS: RESP 16; TEMP 98
--- NOTE | 2022-11-02 10:45 | FL ---
EXAMINATION TYPE: FL myelogram lumbosacral DATE OF EXAM: 11/02/2022 10:01 AM HISTORY: Lower extremity pain and numbness 1.22 sec flouro time 10 cc isovue M 200 Informed consent was obtained and all the patient's questions were answered. The L3-L4 level was loc alized under fluoroscopy. Standard sterile technique was utilized as well as appropriate local anest hesia 1% Lidocaine and sodium bicarbonate. Spinal needle was introduced into the thecal sac under fl uoroscopic guidance and 10 cc isovue M 200 was injected. The patient tolerated the procedure well an d left the department in stable condition. CT myelography is to follow. IMPRESSION: Successful myelography lumbar spine
--- NOTE | 2022-11-02 11:04 | CT ---
EXAMINATION TYPE: CT lumbar spine w con DATE OF EXAM: 11/02/2022 COMPARISON: 08/04/2022 HISTORY: lumbar spine post fusion CT DLP: 1024 mGycm Automated exposure control for dose reduction was used. CONTRAST: CT scan of the lumbar is performed , patient injected with 10 mL of Isovue M200. Enhanced CT of the lumbar spine was performed. Bone and soft tissue window settings are submitted as well as coronal and sagittal reconstructions. L1-L2: Normal disc space height. No disc herniation protrusion or central stenosis. No facet joint arthropathy. No evidence for foraminal encroachment. L2-L3: Mild degenerative disc space narrowing. Posterior disc bulge with mild effacement of the ventr al thecal sac. Mild constriction of the thecal sac without overt stenosis at this time. Mild bilatera l neural foraminal encroachment. L3-L4: Moderate degenerative disc space narrowing with vacuum disc seen. Moderate posterior disc bulg e. There is effacement of the ventral thecal sac with mild central stenosis. Mild bilateral neural fo raminal encroachment. L4-L5: Changes of decompressive laminectomy with pedicular screws in place and resultant streak artif act. Intervertebral body spacer noted. Postoperative alignment is within normal limits. No evidence f or recurrent or residual disease. No central stenosis. L5-S1: Changes of decompressive laminectomy with pedicular screws in place and resultant streak artif act. Intervertebral body spacer noted. Postoperative alignment is within normal limits. No evidence f or recurrent or residual disease. No central stenosis. IMPRESSION: 1. Central stenosis identified at L3-4 and borderline stenosis at L2-3. Neural foraminal encroachment as outlined above. 2. Stable postoperative appearance at L4-5 and L5-S1.
[2022-11-02 14:50] VITALS: BP 123/78; PULSE 70
== END 2022-11-02 14:13 | disposition home or self-care (01) ==
LOC: RADPROMAIN 07:17
PROVIDERS: ATTEND Orthopaedic Surgery
DX: M48.061 Spinal stenosis, lumbar region without neurogenic claudication (principal); M51.16 Intervertebral disc disorders with radiculopathy, lumbar region; M47.26 Other spondylosis with radiculopathy, lumbar region; Z98.1 Arthrodesis status; G89.29 Other chronic pain; Z79.899 Other long term (current) drug therapy
CPT/HCPCS: 62304; 72132; J2001; Q9966

== ENCOUNTER → 2023-01-08 | Outpatient (CLI) | payer MEDICARE ==
[2023-01-08 14:59] LABS: INR 1.2 (<1.2); Prothrombin Time 12.1 sec (9.0-12.0)
[2023-01-09 02:41] LABS: Basophils # (A) 0.07 X 10*3/uL (0.00-0.10); Basophils % (A) 1.4 %; Eosinophils # (A) 0.15 X 10*3/uL (0.04-0.35); HCT 44.8 % (39.6-50.0); HGB 15.4 d/dL (12.0-15.0); Lymphocytes % (A) 36.6 %; MCH 34.8 pg (27.0-32.0); MCHC 34.4 d/dL (32.0-37.0); MCV 101.1 FL (80.0-97.0); Mean Platelet Volume 10.2 FL (9.5-12.2); Monocytes # (A) 0.53 X 10*3/uL (0.20-1.00); Monocytes % (A) 10.8 %; NRBC Per 100 WBC 0 X 10*3/uL (0.00-0.01); Neutrophils # (A) 2.36 X 10*3/uL (1.80-7.70); Platelet Count 165 X 10*3/uL (140-440); RBC 4.43 X 10*6/uL (4.40-5.60); RDW 13.3 % (11.5-14.5); WBC 4.92 X 10*3/uL (4.50-10.00)
[2023-01-09 18:34] LABS: BUN/Creat Ratio 18.33 Ratio (12.00-20.00); Calcium 9.7 mg/dL (8.7-10.3); Carbon Dioxide 23.4 mmol/L (21.6-31.8); Chloride 100 mmol/L (96-109); Glucose 110 mg/dL (70-110); Sodium 138 mmol/L (135-145)
== END | disposition home or self-care (01) ==
LOC: LABPAT 13:42
PROVIDERS: ATTEND Orthopaedic Surgery
DX: Z01.812 Encounter for preprocedural laboratory examination (principal); Z22.322 Carrier or suspected carrier of Methicillin resistant Staphylococcus aureus; M51.36 Other intervertebral disc degeneration, lumbar region; G95.19 Other vascular myelopathies
CPT/HCPCS: 36415; 80048; 85025; 85610; 87070

== ENCOUNTER 2023-01-16 07:30 | Inpatient (IN) | payer MEDICARE ==
[2023-01-15 08:38] VITALS: BMI 31.4
[~2023-01-16 07:30] MED LIST: ACETAMINOPHEN TAB 500 MG TAB PO PRN; DEXAMETHASONE SOD PHOSPHATE 4 MG/ML 1 ML VIAL IV ONE; GABAPENTIN 300 MG CAP PO PRN; HYDROmorphone 0.5 MG/0.5 ML SYRINGE IVP PRN; LIDOCAINE 1% (10MG/ML) FOR IV START INTRADERMA PRN; MIDAZOLAM 2 MG/2 ML VIAL IV PRN; ONDANSETRON 4 MG/2 ML VIAL IVP ONE; ONDANSETRON 4 MG/2 ML VIAL IVP PRN; TRANEXAMIC 1,000 MG/100ML-NACL 1,000 MG in SALINE 1 100ML.BAG IVPB PRN
[2023-01-16 10:34] LABS: Basophils % (A) 1 %; Eosinophils # (A) 0.3 k/uL (0-0.7); Eosinophils % (A) 5 %; HCT 44.9 % (39.0-53.0); HGB 15.4 gm/dL (13.0-17.5); Lymphocytes # (A) 1.9 k/uL (1.0-4.8); Lymphocytes % (A) 35 %; MCH 34.9 pg (25.0-35.0); MCHC 34.4 g/dL (31.0-37.0); MCV 101.4 fL (80.0-100.0); Mean Platelet Volume 7.6; Monocytes # (A) 0.4 k/uL (0-1.0); Monocytes % (A) 7 %; Neutrophils # (A) 2.6 k/uL (1.3-7.7); Neutrophils % (A) 49 %; Platelet Count 160 k/uL (150-450); RBC 4.42 m/uL (4.30-5.90); RDW 12.6 % (11.5-15.5); WBC 5.3 k/uL (3.8-10.6)
[2023-01-16] MEDS: LACTATED RINGERS 1,000 ML IV SCH (10:35)
[2023-01-16 10:54] LABS: INR 1.1 (<1.2); Prothrombin Time 11.6 sec (9.0-12.0)
--- NOTE | 2023-01-16 11:09 | P.HPOR ---
History of Present Illness H&P Date: 01/16/23 Chief Complaint: Low back pain, LE pain 57 yo male presents today for surgery for his low back due to ongoing low back pain, radicular pain down his legs, progressive weakness that has all been refractory to conservative management. Patient reports a aching sharp burning lumbar pain ongoing for the past year and a half with no known injury or trauma to indicate an exact onset of their symptoms. Patient reports he did have L4-S1 decompression and fusion performed in [address] [place] [address] Biswas. In addition to their lumbar pain, they do report that it radiates into the bilateral thighs, into the groin and bilateral lower extremities, associated withnumbness and tingling. Patient was present in [facility] ER approx 1 month ago due to loss of feeling to bilateral lower extremities. He does present with 2+ edema to bilateral ankles. Pateint reports multiple falls due to intermittent weakness in ower extremities. Overall the patient has seen a progressive increase in symptoms since their onset. Mr. Bolton symptoms are exacerbated with any prolonged ambulation, sitting, or standing, due to this they notes that it is increasingly difficult for Mr. Bolton to complete many of their daily tasks. Patient states he is only able to ambulate for approx 10 min before he has to sit down for relief. Patient is having severe sleep disturbances as well due to their ongoing pain and associated symptoms. Regarding treatments, the patient has previously trialed the above listed modalities. Patient denies trialing any other modalities at this time. For their symptoms, the patient has been taking Tylenol and cyclobenzaprine. Otherwise the patient denies any f/c/sob/cp, no bladder or bowel retention/incontinence, no perineal numbness/tingling, and ambulates independently. Review of Systems The patients' past social, medical, family, surgical history, as well as review of systems, have been reviewed. Please refer to the Neurosurgery History and Physical form that has been scanned in to our electronic medical record system. 14 points review of systems completed and as stated in HPI, all other systems reviewed are negative. Social History: Reviewed, see appropriate section of the chart for details. P3 Family History: Reviewed, see appropriate section of the chart for details. P2 Past Medical History: Reviewed, see appropriate section of the chart for details. P1 Current Medications: Rx: ALPRAZolam Ref: 0 Rx: buPROPion HCL Ref: 0 Rx: cyclobenzaprine Ref: 0 Rx: cyclobenzaprine 10 mg tablet Ref: 0 Instructions: take 1 tablet (10 mg) by oral route 3 times per day Rx: dilTIAZem HCl Ref: 0 Rx: Medrol (Keo) 4 mg tablets in a dose pack Ref: 0 Instructions: take by oral route as directed per package instructions Rx: TylenoL Ref: 0 P1 Past Medical History Past Medical History: Cancer, Hypertension, Musculoskeletal Disorder, Osteoarthritis (OA) Additional Past Medical History / Comment(s): Chronic back pain, hx skin cancer on back. History of Any Multi-Drug Resistant Organisms: None Reported Past Surgical History: Back Surgery Additional Past Surgical History / Comment(s): Back surgery X3 with fusions and rods, basal cell carcinoma removed from back. Past Anesthesia/Blood Transfusion Reactions: Postoperative Nausea & Vomiting (PONV) Past Psychological History: Anxiety, Depression Smoking Status: Never smoker Past Alcohol Use History: Occasional Past Drug Use History: Marijuana Additional Drug Use History / Comment(s): Marijuana use once a day. Aware no use 24 hrs prior to procedure. - Past Family History Mother Family Medical History: No Reported History Medications and Allergies Home Medications Medication Instructions Recorded Confirmed Type ALPRAZolam [Xanax] 1 mg PO TID PRN 08/04/22 01/15/23 History Cyclobenzaprine [Flexeril] 10 mg PO TID 10/25/22 01/15/23 History dilTIAZem HCL [dilTIAZem HCL 24Hr 180 mg PO QAM 10/25/22 01/15/23 History ER (CD)] buPROPion XL [Wellbutrin XL] 300 mg PO 1500 01/15/23 01/15/23 History Allergies Allergy/AdvReac Type Severity Reaction Status Date / Time Penicillins Allergy Rash/Hives Verified 01/15/23 08:16 Physical Examination Osteopathic Statement: *. No significant issues noted on an osteopathic structural exam other than those noted in the History and Physical/Consult. PHYSICAL EXAMINATION: General: Awake, alert, appropriate for age, in no acute distress. HEENT: No unusual neck masses around region of lateral neck triangle, thyroid, supraclavicular groove Heart: Regular rate and rhythm, normal S1, S2 and no murmur/gallop. Lungs: Clear to auscultation bilaterally with no use of accessory muscles. Extremities: Skin warm and dry without acute lesions, coloration, temperature, skin intact, no tenderness or erythema Integument: Hairy patches: ABSENT Dorsal skin dimples: ABSENT Cafe au lait spots: ABSENT Surgical incisions: well healed lumbar incision Palpation: Please see Pain drawing on Intake sheet for further detail. Midline spinal tenderness: No E6 Cervical Tenderness: No E6 Paralumbar tenderness: No E6 Parathoracic tenderness: No E6 Buttocks tenderness: No E6 Sacroilliac Tenderness: No POSTURAL and MUSCULO-SKELETAL EVALUATION: Coronal Balance: NEUTRAL Recumbent testing: Patient is able to lay flat on back Sagittal Balance: NEUTRAL Shoulder Profile: LEVEL Pelvic Girdle: LEVEL Neck ROM: UNRESTRICTED Lumbar ROM: RESTRICTED Shoulder ROM: Symmetrical Hip ROM: Symmetrical Knee ROM: Symmetrical Hands: Normal appearance, symmetrical Feet: Normal appearance, Symmetrical VASCULAR STATUS : LEFT RIGHT Wrist Pulses INTACT INTACT Pedal Pulses (Dors. pedis & post.tibialis) INTACT INTACT Color NORMAL NORMAL Edema Present Present NEUROLOGIC EXAMINATION: Mental Status:Awake and alert, fully oriented, with normal attention, concentration and memory, and fluent, appropriate speech. Cranial Nerves: I: Olfactory not tested. II: Visual acuity normal, no visual field deficit noted with confrontation. III,IV: Normal pupillary reflexes & intact extraocular movements without nystagmus. V,: Intact symmetrical facial sensation. VII: Intact symmetrical facial motor movement VIII: Hearing intact. IX,X: Intact gag, swallow, & normal voice. XI: Sternocleidomastoid, trapezius function intact. XII: Tongue midline with normal movements. L'hermitte's Sign: Negative / absent Spurling'Sign: Absent bilaterally. Cubital percussion test: Absent bilaterally. Montoya-Tinel sign - Carpal region: Absent bilaterally. Straight Leg Raising: Absent bilaterally. Crossed straight leg raise: negative O8 MOTOR EXAM (0-5/5, N/T Muscle appearance: Symmetrical, without signs of atrophy or dystrophy UPPER EXTREMITY RIGHT LEFT Shoulder Abduction 5/5 5/5 Biceps 5/5 5/5 Triceps 5/5 5/5 Wrist Extension 5/5 5/5 Hand Intrnsics 5/5 5/5 Biological Engineer 5/5 5/5 Hand and finger dexterity intact bilaterally? yes Disdiadochokinesis examination negative bilaterally? yes LOWER EXTREMITY RIGHT LEFT Hip Flexion 5/5 5/5 Knee Extension 4/5 4/5 Knee Flexion 4/5 4/5 Dorsiflexion 4/5 4/5 Plantarflexion 4/5 4/5 EHL 4/5 4/5 FHL 4/5 4/5 Toe heel walk / heel-toe walk intact while maintaining satisfactory balance? No Squatting/straightening w/o assistance to a min of 60 degree knee flexion? No Single leg stance: intact Trendelenburg sign negative bilaterally REFLEXES(0-4/2, NT)Upper ExtremityLower Extremity Right 2 2 Left 2 2 Pathological Reflexes RIGHT LEFT Montoya's Absent Absent Clonus Absent Absent Babinski Absent Absent Sensory system (0-4, N/T) Test type RU DELORES RL LL Joint-Position 2 2 2 2 Vibration 2 2 2 2 Pain & LT sense 2 2 2 2 Dermatomal Deficit: None None None None Gait and Functional Evaluation: Ambulatory aids: Independent Romberg's test: Intact bilaterally Steady Gait Results XRay Lumbar Multiview (AP, Lateral, Flexion, Extension) with AP pelvis; 5 views taken at [facility] on 10/06/22: Moderate multilevel spondylitic and degenerative changes with preserved alignment. Hardware present L4-S1 from previous surgery. Multilevel diminished disc height. Hardware is intact, no migration. Vertebral body heights are preserved. No acute osseous abnormalities. CT myelogram done at [facility] 11/02/2022: Images are reviewed and demonstrate adjacent segment disease at L3-L4 with vacuum disc phenomena central stenosis and foraminal stenosis due to adjacent segment disease. Facet hypertrophy also contributes. L4 5 and L5-S1 show interbody and posterior lateral fusion construct in position no complicating processes seen other than likely incomplete fusion of L4-L5. L5-S1 seems to be relatively fused. Anteriorly is questionable however posteriorly there is reasonable fusion construct. There is some haloing around the L5 screws bilaterally however. S1 screws appear intact. Some flattening of the normal lumbar lordosis is noted. No acute fracture dislocation otherwise noted. Assessment and Plan Assessment: 1. 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 low back pain status post L4 to S1 decompression fusion .DX:Diagnosis: Lumbar radiculopathy : ICD10 = M54.16 / ICD9 = 724.4 / SNOMED = 209300793 .DX:Diagnosis: Pseudoarthrosis status post fusion : ICD10 = M96.0 / ICD9 = V45.4 / SNOMED = 790740827 .DX:Diagnosis: Lumbar spondylosis : ICD10 = M47.816 / ICD9 = 721.3 / SNOMED = 602520133 Plan: Spine Surgery Clinical and Risk Review Carlos Bolton is a 57 yo male presenting for evaluation of progressive low back pain, LE pain down to feet, progressive weakness and difficulty with ADLs due to this. It was my pleasure to have seen and examined Carlos Bolton . In our visit today we have had a chance to go over subjective complaints, physical examination findings and treatments including the natural course history without intervention and various interventional options. The patients imaging demonstrates . CT myelogram done at [facility] 11/02/2022: Images are reviewed and demonstrate adjacent segment disease at L3-L4 with vacuum disc phenomena central stenosis and foraminal stenosis due to adjacent segment disease. Facet hypertrophy also contributes. L4 5 and L5-S1 show interbody and posterior lateral fusion construct in position no complicating processes seen other than likely incomplete fusion of L4-L5. L5-S1 seems to be relatively fused. Anteriorly is questionable however posteriorly there is reasonable fusion construct. There is some haloing around the L5 screws bilaterally however. S1 screws appear intact. Some flattening of the normal lumbar lordosis is noted. No acute fracture dislocation otherwise noted. On physical exam, Carlos Bolton demonstrates low back pain with any activity, LE weakness, LE radiculopathy with tensioning signs. I have explained to the patient that as their condition progresses it will cause further neurological deficits and eventual paralysis. Based on the patients imaging, physical exam, and the rapid progression and disabling nature of their symptoms, at this time I recommend surgery in the form or a: Revision L3-S1 decompression and fusion. I discussed the risk and benefits of this procedure at length with Carlos Bolton . The patient spouse agreed to considered pursuing the procedure abovementioned. Prior to surgery, she should follow up with her PCP (Cardio, ID, IM etc) for clearance. Questions were invited and answered, and the patient wishes to proceed as outlined below. Currently, I am recommendin. Revision L3-S1 decompression and fusion 2. Follow up with PCP for surgical clearance 3. Review of surgical risks and benefits as well as an educational packet on the proposed surgical procedure. Risks: All surgical procedures come with inherent risks, including those related to positioning, anesthesia, intraoperative findings, and postoperative complications. It is important to understand that surgery does not come with any guarantee of a successful outcome as complications and adverse events are always possible. The patient was given a handout in office today discussing the surgical p rocedure and risks associated with the intervention, both of which were discussed with the patient. These risks include but are not limited to the following: * Experiencing same, different or even worse symptoms in back, neck, arms, or legs compared to before surgery. * Requiring further surgery or other forms of treatment presently or at some time in the future at same or other levels of the intended spine surgery. * On an extreme but fortunately relatively rare basis severe complication such as blindness, stroke, heart attack, temporary and/or permanent nerve injury, paralysis, coma, or may occur, sometimes without known explanation. * Surgical complications may include but are not limited to risk of infection, fluid accumulation in the surgical dissection site, including a seroma or hematoma, that requires additional surgery, wound drainage, bleeding, new numbness or weakness, vision changes/loss, spinal fluid leakage, non-healing and/or infected incision, headaches, difficulty or inability to swallow, hoarseness, hemopneumothorax, pneumothorax, impotence, retrograde ejaculation, vaginal dryness; injury to nerves, spinal cord, blood vessels, lymphatics or other vital organs (i.e., bowel injury, injury to the great vessels); heterotopic bone formation; complications related to the hardware such as screws, rods, cages including misplaced hardware, device failure, instrumentation at the wrong spine level, hardware fracture/breakage, or hardware loosening; vertebral failure of the spinal column above or below the newly placed hardware; retained surgical instrumentations or devices and the need for further surgery. * Medical risks of the planned spine surgery include but are not limited to generalized Infections to the whole body or local areas outside of the surgical site (sepsis), heart attack, bleeding, anaphylaxis, meningitis, seizure, epilepsy, hearing loss, burn temple, laceration of the head or other areas of the body, bruising, hypersensitivity of the skin, bladder over distension; allergic reaction; shoulder injury related to positioning; fat, blood and air clots to other areas of the body like heart, lungs, brain; failure of internal organs such as lungs, kidneys, liver and excessive bleeding. If blood transfusions are necessary, note that transfusions may cause intolerance reactions such as anaphylaxis or other complex reactions. * Despite best efforts, the results of spine surgery might not heal in terms of bone, soft tissues such as skin, fascia, ligaments, and joints. Additionally, in order to achieve best possible results, spine surgery may be carried out beyond the initially planned levels and involve decompression, fusion including insertion of hardware at levels other than the original intended area of surgical interest change some portions of the procedure in order to ensure the best possible outcomes. * With spine surgery and spinal fusion, there are different off label uses of instrumentation (devices, implants and hardware) as well as biological substances (bone morphogenic proteins, demineralized bone matrix) as well as using extra bone from allograft sources (i.e. cadaver bone) or autograft (iliac crest bone, ribs, or the spine itself). The patient has been given information about these practices and their inherent risks and benefits. The patient has had a chance to review all the listed information, has been given print outs detailing this information, and has had all his/her questions answered to their satisfaction. It was my pleasure to have seen and examined Carlos Bolton . In our visit today we have had a chance to go over my understanding of our patient's current condition, the natural course history without intervention and various interventional options. Questions were invited and answered, and the patient wishes to proceed as outlined above. I have seen and examined the patient for 25 minutes and we have spent more than 50% of the time in repeat and detailed counseling about the patient's condition, its natural course history with out and as much as can be predicted with surgery and re-review of various surgical treatment options. In conclusion, Carlos Bolton and spouse requested we proceed with the above suggested surgery and are willing to accept risks and limitations of the suggested surgery as nature of the disease process and our best attempts at treatment for the condition. Thank you again for allowing us to be part of your patient's care. Please don't hesitate to contact me if you have any further questions. Signed and authenticated by: Paulo [facility] [address] [facility], [address] [address]
[2023-01-16] MEDS ORDERED: MIDAZOLAM 2 MG/2 ML VIAL IVP ONE (11:18)
[2023-01-16] MEDS ORDERED: fentaNYL (PF) 50 MCG/ML 2 ML AMP IVP ONE (11:24)
--- NOTE | 2023-01-16 11:49 | P.ANPRN ---
Procedure Note - Anesthesia - Invasive Line Left Arterial Line Time Out Performed: Yes Date of Procedure: 01/16/23 Time of Procedure: 11:15 Location of Patient: PreOp Preparation: Sterile Prep Arterial Line Location: Radial Ultrasound Used: Yes Purpose - Visualization and Identification of Vasculature: Yes Needle Guage: 20 Image Stored and Saved: No Narrative: Central line placement per sterile protocol utilized.
--- NOTE | 2023-01-16 11:51 | P.ANPRN ---
Procedure Note - Anesthesia - Invasive Line Right Central Line Time Out Performed: Yes Date of Procedure: 01/16/23 Time of Procedure: 11:20 Location of Patient: PreOp Preparation: Sterile Prep Central Line Location: Internal Jugular Ultrasound Used: Yes Purpose - Visualization and Identification of Vasculature: Yes Needle Guage: 18 Image Stored and Saved: Yes Narrative: Central line placement per sterile protocol utilized.
--- NOTE | 2023-01-16 12:06 | XR ---
EXAMINATION TYPE: XR chest 1V DATE OF EXAM: 01/16/2023 12:00 PM COMPARISON: None TECHNIQUE: XR chest 1V Frontal view of the chest. CLINICAL INDICATION:Male, 57 years old with history of POST CENTRAL LINE PLACEMENT; FINDINGS: Lungs/Pleura: There is no evidence of pleural effusion, focal consolidation, or pneumothorax. Pulmonary vascularity: Unremarkable. Heart/mediastinum: Cardiomediastinal silhouette is unremarkable. Musculoskeletal: No acute osseous pathology. Other findings: None Lines/Tubes: Right internal jugular central venous catheter with distal tip at the superior vena cava. IMPRESSION: 1. No acute cardiopulmonary disease/process. 2. Right central venous catheter with tip in appropriate position. No evidence for pneumothorax.
[2023-01-16] MEDS ORDERED: ROCURONIUM 10 MG/ML (5 ML VIAL) IV ONE (12:10)
[2023-01-16] MEDS ORDERED: fentaNYL (PF) 50 MCG/ML 2 ML AMP ONE (12:10)
[2023-01-16] MEDS ORDERED: TRANEXAMIC 1,000 MG/100ML-NACL PREMIX BAG ONE (12:10)
[2023-01-16] MEDS ORDERED: KETAMINE 10 MG/ML 20 ML VIAL ONE (12:10)
[2023-01-16] MEDS ORDERED: diphenhydrAMINE 50 MG/ML 1 ML VIAL ONE (12:10)
[2023-01-16] MEDS ORDERED: NEOSTIGMINE 1 MG/ML 10 ML VIAL ONE (12:10)
[2023-01-16] MEDS ORDERED: PROPOFOL 10 MG/ML 20 ML VIAL IV ONE (12:10)
[2023-01-16] MEDS ORDERED: SUCCINYLCHOLINE CHLORIDE 200 MG/10 ML VIAL IV ONE (12:10)
[2023-01-16] MEDS ORDERED: MIDAZOLAM 2 MG/2 ML VIAL ONE (12:10)
[2023-01-16] MEDS ORDERED: HYDROmorphone (PF) 1 MG/ML ONE (12:10)
[2023-01-16] MEDS ORDERED: GLYCOPYRROLATE 0.2 MG/ML 2 ML VIAL ONE (12:10)
[2023-01-16] MEDS ORDERED: ceFAZolin 3,000 MG in SODIUM CHLORIDE 0.9% IRRIGATIO 3,000 ML IRRIGATION ONE (12:47)
[2023-01-16] MEDS ORDERED: GENTAMICIN 80 MG in SODIUM CHLORIDE 0.9% IRRIGATIO 3,000 ML IRRIGATION ONE (12:47)
[2023-01-16] MEDS ORDERED: GELATIN SPONGE,ABSORB (LARGE) 1 EACH SPONGE TOPICAL ONE (12:47)
[2023-01-16] MEDS ORDERED: THROMBIN (BOVINE) 5,000 UNIT VIAL MISCELLANE ONE (12:47)
[2023-01-16] MEDS ORDERED: SENNOSIDES-DOCUSATE SODIUM 1 EACH TAB PO PRN (14:58)
[2023-01-16] MEDS ORDERED: HYDROcodone/APAP 5-325MG 1 EACH TAB PO PRN (14:58)
[2023-01-16] MEDS ORDERED: CYCLOBENZAPRINE 10 MG TAB PO PRN (14:58)
[2023-01-16] MEDS ORDERED: HYDROmorphone 0.5 MG/0.5 ML SYRINGE IVP PRN (14:58)
[2023-01-16] MEDS ORDERED: MAGNESIUM HYDROXIDE 2,400 MG/30 ML CUP PO PRN (14:58)
[2023-01-16] MEDS ORDERED: VANCOMYCIN 1,000 MG VIAL MISCELLANE ONE (15:34)
[2023-01-16] MEDS ORDERED: LACTATED RINGERS 1,000 ML IV ONE (15:43)
[2023-01-16] MEDS ORDERED: SODIUM CHLORIDE 0.9% 1,000 ML IV ONE (15:43)
--- NOTE | 2023-01-16 16:16 | FL ---
EXAMINATION TYPE: FL guidance operating room, XR lumbar spine 2 or 3V DATE OF EXAM: 01/16/2023 CLINICAL HISTORY: Low back pain. TECHNIQUE: Fluoroscopy. Intraoperative 2 views lumbar spine. COMPARISON: CT lumbar spine myelogram November 02, 2022 FINDINGS: Fluoroscopic guidance was provided during PLDF procedure performed by Dr. Salazar. A t otal of 42 seconds of fluoroscopic time was utilized during the procedure and four spot images are ac quired. TOTAL DAP = 10.710 Gy x cm2. Images obtained show posterior interpedicular rods and screws from L3 through S1 levels bilaterally w ith metallic disc material at these levels now present. Alignment is stable and satisfactory. IMPRESSION: As Above.
[2023-01-16] MEDS: GABAPENTIN 300 MG CAP PO SCH ×2 (17:50→21:53)
[2023-01-16] MEDS: HYDROmorphone 1 MG/ML 1 ML SYRINGE IVP PRN (18:31)
[2023-01-16] MEDS: ACETAMINOPHEN TAB 325 MG TAB PO SCH (18:33)
[2023-01-16] MEDS ORDERED: ALPRAZolam 1 MG TAB PO PRN (20:59)
--- NOTE | 2023-01-16 20:59 | CT ---
EXAMINATION TYPE: CT lumbar spine wo con DATE OF EXAM: 01/16/2023 8:50 PM COMPARISON: 11/02/2022 HISTORY: s/p revision L3-S1 decompression fusion CT DLP: 1998.6 mGycm Automated exposure control for dose reduction was used. Unenhanced CT of the lumbar spine was performed. Bone and soft tissue window settings are submitted as well as coronal and sagittal reconstructions. L1-L2: Normal disc space height. No disc herniation protrusion or central stenosis. No facet joint arthropathy. No evidence for foraminal encroachment. L2-L3: Mild degenerative disc space narrowing. Posterior disc bulge. Constriction of the thecal sac w ith borderline stenosis. Mild right foraminal encroachment. L3-L4: Postsurgical changes of decompressive laminectomy with pedicular screws in place. Interval brenna cement of intervertebral body spacer. Alignment is near-anatomic. Postsurgical soft tissue changes no love. Examination is limited by streak artifact. L4-L5: Postsurgical changes of decompressive laminectomy with pedicular screws in place. Intervertebr al body spacer is unchanged in position. Postsurgical soft tissue changes noted. Examination is limi love by streak artifact.Alignment is near-anatomic. L5-S1: Postsurgical changes of decompressive laminectomy with pedicular screws in place. Intervertebr al body spacer is unchanged in position. Postsurgical soft tissue changes noted. Examination is limi love by streak artifact. Grade 1 anterolisthesis L5 on S1 measuring 4.8 mm unchanged from prior study. IMPRESSION: 1. Postsurgical changes as discussed L3-4, L4-5 and L5-S1.
[2023-01-17] MEDS: ACETAMINOPHEN TAB 325 MG TAB PO SCH ×4 (00:32→17:53)
[2023-01-17] MEDS: HYDROcodone/APAP 10-325MG 1 EACH TAB PO PRN ×3 (01:31→17:51)
--- NOTE | 2023-01-17 02:12 | P.CONS ---
History of Present Illness - Reason for Consult Consult date: 01/16/23 post op medical eval - Chief Complaint scheduled c spine decompression surgery - History of Present Illness 57 year old male with hypertension patient coming in for scheduled lumbar spine decompression and fusion of the L3-S1. he tolerated procedure well, denies any immediate post op complications . denies any fever, chills, chest pain or trouble breathing . he is tolerating po intake . pain is well controlled, no new onset focal neuro deficits denies tobacco smoking, illicit drugs or heavy alcohol review of systems Pertinent positives as noted in HPI. All other systems were reviewed and are negative on exam Constitutional: No acute distress, conversant, pleasant Eyes: Anicteric sclerae, moist conjunctiva, Pupils equal round reactive to light ENMT: NC/AT Oropharynx clear, no erythema, or exudates Neck: Supple, no masses, or JVD No carotid bruits No thyromegaly Lungs: Clear to auscultation Clear to percussion Normal respiratory effort, no accessory muscle use Cardiovascular: Heart regular in rate and rhythm, No murmurs, gallops, or rubs No peripheral edema Abdominal: Soft Nontender, no guarding, rebound or rigidity Abdomen moving with respiration Normoactive bowel sounds No hepatomegaly, No splenomegaly No palpable mass No abdominal wall hernia noted Skin: Normal temperature, tone, texture, turgor Extremities: No digital cyanosis No clubbing Pedal pulses intact and symmetrical Radial pulses intact and symmetrical No calf tenderness Psychiatric: Alert and oriented to person, place and time Appropriate affect Neuro Muscles Strength 5/5 in all 4 extremities Sensation to light touch grossly present throughout Cranial nerves II-XII grossly intact Lymphatics: no palpable cervical or supraclavicular lymph nodes Past Medical History Past Medical History: Cancer, Hypertension, Musculoskeletal Disorder, Osteoar thritis (OA) Additional Past Medical History / Comment(s): Chronic back pain, hx skin cancer on back. History of Any Multi-Drug Resistant Organisms: None Reported Past Surgical History: Back Surgery Additional Past Surgical History / Comment(s): Back surgery X3 with fusions and rods, basal cell carcinoma removed from back. Past Anesthesia/Blood Transfusion Reactions: Postoperative Nausea & Vomiting (PONV) Smoking Status: Never smoker, Second hand smoke exposure - Past Family History Mother Family Medical History: No Reported History Medications and Allergies Home Medications Medication Instructions Recorded Confirmed Type ALPRAZolam [Xanax] 1 mg PO TID PRN 08/04/22 01/16/23 History Cyclobenzaprine [Flexeril] 10 mg PO TID 10/25/22 01/15/23 History dilTIAZem HCL [dilTIAZem HCL 24Hr 180 mg PO QAM 10/25/22 01/16/23 History ER (CD)] buPROPion XL [Wellbutrin XL] 300 mg PO 1500 01/15/23 01/15/23 History Allergies Allergy/AdvReac Type Severity Reaction Status Date / Time Penicillins Allergy Rash/Hives Verified 01/16/23 10:10 Physical Exam Vitals: Vital Signs Temp Pulse Resp BP Pulse Ox 01/16/23 20:00 88 163/85 90 L 01/16/23 19:45 83 159/84 91 L 01/16/23 19:30 82 164/90 94 L 01/16/23 19:15 82 164/84 94 L 01/16/23 19:00 80 157/87 94 L 01/16/23 18:30 80 166/95 93 L 01/16/23 18:15 77 165/94 93 L 01/16/23 18:07 98.3 F 83 16 161/98 90 L 01/16/23 17:50 80 16 160/90 01/16/23 17:20 86 15 134/83 95 01/16/23 17:05 65 15 119/80 94 L 01/16/23 16:50 97.5 F L 64 12 113/73 92 L 01/16/23 11:40 80 16 153/82 98 01/16/23 11:30 74 16 149/83 97 01/16/23 11:18 76 16 150/82 97 01/16/23 10:19 98.2 F 88 16 172/82 94 L Intake and Output 01/16/23 01/16/23 01/17/23 14:59 22:59 06:59 Intake Total 1102 1250 Output Total 2750 Balance 1102 -1500 Intake: IV 1102 1250 Output: Urine 2300 Estimated Blood Loss 450 Other: Weight 113.4 kg 113.4 kg Results CBC & Chem 7: 01/16/23 10:24 Labs: Abnormal Lab Results - Last 24 Hours (Table) 01/16/23 Range/Units 10:24 MCV 101.4 H (80.0-100.0) fL Assessment and Plan Assessment: post lumbar spine decompression and fusion , POD zero management per orthopedic chronic conditions hypertension , controlled resume cardizem check BMP and CBC in AM patient is stable from medical stand point Thank you for this consultation
[2023-01-17] MEDS: LACTATED RINGERS 1,000 ML IV SCH (05:51)
[2023-01-17] MEDS: HYDROmorphone 1 MG/ML 1 ML SYRINGE IVP PRN (06:01)
[2023-01-17] MEDS: GABAPENTIN 300 MG CAP PO SCH ×2 (07:56→15:20)
[2023-01-17 08:43] LABS: Basophils # (A) 0.02 X 10*3/uL (0.00-0.10); Basophils % (A) 0.2 %; Eosinophils # (A) 0 X 10*3/uL (0.04-0.35); Eosinophils % (A) 0 %; HCT 37.9 % (39.6-50.0); HGB 13.3 d/dL (12.0-15.0); Lymphocytes % (A) 9.3 %; MCH 34.5 pg (27.0-32.0); MCHC 35.1 d/dL (32.0-37.0); MCV 98.4 FL (80.0-97.0); Mean Platelet Volume 10.5 FL (9.5-12.2); Monocytes # (A) 0.62 X 10*3/uL (0.20-1.00); Monocytes % (A) 6.4 %; NRBC Per 100 WBC 0 X 10*3/uL (0.00-0.01); Neutrophils # (A) 8.09 X 10*3/uL (1.80-7.70); Neutrophils % (A) 83.8 %; Platelet Count 149 X 10*3/uL (140-440); RBC 3.85 X 10*6/uL (4.40-5.60); RDW 12.6 % (11.5-14.5); WBC 9.66 X 10*3/uL (4.50-10.00)
[2023-01-17 08:47] LABS: BUN/Creat Ratio 12.83 Ratio (12.00-20.00); Blood Urea Nitrogen 7.7 mg/dL (9.0-27.0); Calcium 8.4 mg/dL (8.7-10.3); Carbon Dioxide 24.1 mmol/L (21.6-31.8); Chloride 101 mmol/L (96-109); Glucose 119 mg/dL (70-110); Potassium 4.1 mmol/L (3.5-5.5); Sodium 138 mmol/L (135-145)
[2023-01-17] MEDS ORDERED: DILTIAZEM CD 180 MG CAP.ER.24H PO SCH (09:00)
--- NOTE | 2023-01-17 11:43 | P.PN ---
Subjective Progress Note Date: 01/17/23 Principal diagnosis: 1. 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 low back pain status post L4 to S1 decompression fusion Patient seen and examined this morning. Patient is resting comfortably in bed. Patient reports that he has been ambulatory since the procedure and tolerating well. Patient states that he does notice improvement in his pain to the lower back since procedure. Surgical incision to the lumbar spine, dressing is clean dry and intact. Hemovac is present with an output of 40 mL overnight. Informed patient that physical therapy will be in to work with him today. Patient is looking forward to possibly going home later today. Explained to patient nick ramirez PT evaluation and drain output he may be discharged later this afternoon. Objective - Vital Signs Vital signs: Vital Signs Temp 97.7 F 01/17/23 07:02 Pulse 80 01/17/23 07:02 Resp 17 01/17/23 07:02 BP 127/85 01/17/23 07:02 Pulse Ox 95 01/17/23 07:02 FiO2 Intake & Output 01/16/23 01/17/23 01/17/23 18:59 06:59 18:59 Intake Total 2352 Output Total 1150 5100 Balance 1202 -5100 Weight 113.4 kg Intake: IV 2352 Output: Urine 700 5100 Estimated Blood Loss 450 - Exam Physical Examination General: The patient is awake and alert, in no acute distress Skin: Skin is warm and dry with no obvious rashes or lesions. Surgical incision to the lumbar spine, surgical dressing is clean dry and intact with scant shadowing. Hemovac is present and patent. Eye: Pupils are equal, round and reactive to light, extra-ocular movements are intact; there is normal conjunctiva bilaterally. Neck: The neck is supple, there is no tenderness and ROM intact. Cardiovascular: There is a regular rate and rhythm. No murmur, rub or gallop is appreciated. Respiratory: Lungs are clear to auscultation, respirations are non-labored, breath sounds are equal. Gastrointestinal: Soft, non-distended, non-tender abdomen. Back: There is no tenderness to palpation in the midline, paralumbar, parathoracic or buttocks region. There is no obvious deformity . Musculoskeletal: ROM limited secondary to pain and stiffness from surgical procedure. Muscle strength in all major muscle groups of bilateral upper extremities 5/5, bilateral lower extremities 4/5. Neurological: CN 2-12 intact. There are no obvious motor or sensory deficits. Movement and coordination equal and intact. Sensory exam to light touch intact C5-T1 and intact from L2-S1. Reflexes 2/4 in bilateral upper and lower e xtremities. Negative Hoffmans, babinski, and clonus signs. Psychiatric: Cooperative, appropriate mood & affect, normal judgment. - Labs CBC & Chem 7: 01/17/23 05:48 01/17/23 05:48 Labs: Abnormal Lab Results - Last 24 Hours (Table) 01/16/23 Range/Units 10:24 MCV 101.4 H (80.0-100.0) fL Assessment and Plan Assessment: Postop day 1: Revision L3-S1 decompression and fusion 1. 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 low back pain status post L4 to S1 decompression fusion Plan: -Appreciate change management consultant and team management. -Activity: Ambulate QID, OOB all meals, up and about, limit lifting bending twi sting to less than 5 lbs. Use walker or cane if needed for stability. -Daily PT/OT, increase ambulation strength and balance. -Brace when up and about, not needed in bed or chair - Prescription for LSO brace has been left in chart -Pain control: Adequate at this time -Meds: reviewed -GI ppx: senna, Miralax -DC lozano when up and about, bedside commode if needed -DVT PPX: OK to restart Heparin tonight -Hygiene: Shower today. Maintain dressing clean and dry. Meticulous cleaning after BMs away from the incision site -Drains: Maintain for now. DC later today pending out put and PT -Encourage IS 10x/hr -Dispo: Anticipate discharge home later today with homecare *I reviewed and discussed this case with my attending Dr. Salazar, whom has reviewed this chart and films and is in agreement with assessment and plan of care as outlined above. I have personally seen and examined the patient, performed the documentation and the assessment and plan as written. Number of minutes spent on the visit: 15m.
--- NOTE | 2023-01-17 13:29 | P.DS ---
Providers Date of admission: 01/16/23 09:51 Expected date of discharge: 01/17/23 Attending physician: Paulo Salazar DO Consults: 01/16/23 14:58 Consult Physician Routine Consulting Provider: Kinga Stokes Consult Reason/Comments: medical management s/p revision L3-S1 decompr-fusion Do you want consulting provider notified?: Yes Primary care physician: MELODY Bonilla Hospital Course: Hospital Course: The patient was evaluated preoperatively and found to have the diagnosis of L3- L4 adjacent segment disease. They underwent appropriate preoperative care and were willing to undergo the intended procedure. They underwent a successful revision L3-S1 decompression and fusion, were recovered appropriately and sent to the floor. While on the floor they worked with physical therapy, occupational therapy and nursing to enhance their recovery experience. Their pain was well controlled through their stay and they were started on appropriate medications, DVT ppx modalities, activity and dietary needs. Daily labs were monitored closely, and transfusions were only used when necessary. Medicine as well as other consulting services have made their input and have helped with our team approach and multidisciplinary care. PT milestones have been met and passed and they have made the recommendation of home with home care for this patient and treating providers agree with this care path. The patient will be discharged home with appropriate medications, instructions and follow-up information and in stable condition. Patient Condition at Discharge: Good Plan - Discharge Summary Discharge Rx Participant: Yes New Discharge Prescriptions: New Sulfamethox-Tmp 800-160Mg [Bactrim DS 800-160 mg] 1 tab PO Q12HR 5 Days #10 tab Gabapentin 300 mg PO TID #90 cap Sennosides/Docusate Sodium [Senna Plus 8.6-50 mg Softgel] 1 each PO DAILY PRN #20 capsule PRN Reason: Constipation Cyclobenzaprine [Flexeril] 10 mg PO TID #90 tab HYDROcodone/APAP 10-325MG [[place] 10-325] 1 tab PO Q4-6H PRN #42 tab PRN Reason: Pain Continue ALPRAZolam [Xanax] 1 mg PO TID PRN PRN Reason: Anxiety dilTIAZem HCL [dilTIAZem HCL 24Hr ER (CD)] 180 mg PO QAM buPROPion XL [Wellbutrin XL] 300 mg PO 1500 No Action Cyclobenzaprine [Flexeril] 10 mg PO TID Discharge Medication List ALPRAZolam [Xanax] 1 mg PO TID PRN 08/04/22 [History] Cyclobenzaprine [Flexeril] 10 mg PO TID 10/25/22 [History] dilTIAZem HCL [dilTIAZem HCL 24Hr ER (CD)] 180 mg PO QAM 10/25/22 [History] buPROPion XL [Wellbutrin XL] 300 mg PO 1500 01/15/23 [History] Cyclobenzaprine [Flexeril] 10 mg PO TID #90 tab 01/17/23 [Rx] Gabapentin 300 mg PO TID #90 cap 01/17/23 [Rx] HYDROcodone/APAP 10-325MG [[place] 10-325] 1 tab PO Q4-6H PRN #42 tab 01/17/23 [Rx] Sennosides/Docusate Sodium [Senna Plus 8.6-50 mg Softgel] 1 each PO DAILY PRN #20 capsule 01/17/23 [Rx] Sulfamethox-Tmp 800-160Mg [Bactrim DS 800-160 mg] 1 tab PO Q12HR 5 Days #10 tab 01/17/23 [Rx] Follow up Appointment(s)/Referral(s): Paulo Salazar DO [Doctor of Osteopathic Medicine] - 01/31/23 2:00 pm Jailene Boyce [NON-STAFF] - As Needed (LSO back brace) Activity/Diet/Wound Care/Special Instructions: Spine Discharge and Recovery Instructions Date of Surgery: 01/16/2023 Diagnosis: L3-L4 adjacent segment disease Procedure: Revision L3-S1 decompression and fusion Medications: See medication list All medication refills should be obtained through your primary care doctor or your clinic spine surgeon. Please discuss prescription refills at your follow up appointment. Do not call the hospital for medication refills. Dressing: Leave your dressing in place for a total of 5 days post operatively. Then you may remove your dressing and leave open to air. Keep the area clean and if not able to keep area clean, then cover with sterile gauze and tape. Showering: You may shower 3 days after your procedure allowing soap and water to run over incision. Do not scrub. Do not soak. Blot dry. Follow up: Please confirm a follow up appointment with your surgeon 3 weeks post operatively. Please make an appointment to follow up with your PCP in 1-2 weeks after [facility] for evaluation 3 phase, 3-week plan POST OP WEEKS 1-3 1. Lifting/carrying/pushing/pulling limited to less than 5 pounds. 2. Do not sit for longer than 15 minutes at one time. Get up and walk around. Prolonged sitting is NOT advised. If you lay down, see if you can tolerate laying down on you front (belly side) 3. Walk for periods of 15 minutes = 1 mile but no longer; do it multiple times times each day. 4. Ice your low back after activity. POST OP WEEKS 3-6 1. Lifting limited to less than 20 pounds. 2. Do not sit for longer than 30 minutes at a time. Frequently change positions. Use a sit-to stand workstation or take frequent breaks from sitting if you have returned to work. 3. Walk for 30 minutes each day. If possible, do these three or more times a day POST OP WEEKS 6+ At your 6-week appointment we will give you a physical therapy referral to focus on a core stabilization and strengthening program. You should also work on leg & buttock strengthening, hamstring & quadriceps stretching, and continue a low impact aerobic activity program such as swimming, walking, or riding a stationary bicycle. During the initial 6 weeks after your surgery, you are at the highest risk of re-injuring your spine. You should generally avoid BLTs (bending, lifting and twisting combination motions) and follow the above guidelines to reduce the chance of reinjury. You can anticipate post op appointments in our office at approximately 3 weeks and 6 weeks after your surgery. INCISION CARE: If your incision is not draining you do NOT need to cover it with a dressing. Keep your incision clean, dry and intact. In most cases, we apply skin glue, chris or sutures to the incision at the time of surgery. This will be like a crust or have the appearance of a scab and will fall off in time on its own. The stitches or chris need to be removed at 3 weeks post op appointment. You may begin to shower 3 days after surgery (this allows the glue to cannon well). However, please avoid scrubbing the incision site or peeling off any of the skin glue. This will ensure optimal healing of your incision. Also, during this time avoid soaking the incision area in water - this includes swimming pools, hot tubs or baths. No ointments, lotions or oils on the incision until your surgeon allows. Leave chris, sutures or glue in place. Neurological dysfunction that comes on suddenly can also be a sign of a stroke. Below some common symptoms of a stroke are listed: B - balance difficulty such as sudden onset walking or leaning to one side - NEW E - eye problem such as sudden double vision or trouble seeing on one side - NEW F - Facial weakness or numbness on one side - NEW A - Arm or leg weakness or numbness on one side - NEW S - Slurred speech or difficulty with word finding - NEW T - Time is BRAIN! Call 911 as soon as you recognize these symptoms Diet: Consume a regular diet rich in vegetables and lean protein such as chicken or fish. You should consume in a ratio of approximately 20% fats|40% carbohydrates|40%protein. Vegetables, sweet potatoes, brown rice or quinoa are examples of good carbohydrates. Chips, white bread, cookies and sweets/sugar are examples of bad carbohydrates. Limit your bad carbs, go wild with good carbs. "Life's Simple 7" Guidelines as per [place] [employer] These will help you reclaim your life after surgery and pole shaver helper in your recovery, keeping in mind your restrictions. (1) Get Active. Physical activity can help people lose weight, control high blood pressure and cholesterol, feel emotionally better, and sleep better. (2) Control Cholesterol. Avoid a diet high in saturated fat, trans fat, & cholesterol. Limit whole milk & cream, ice cream, butter, egg yolks, processed meats (like sausage and hot dogs), and fatty meats. Choose healthy foods that are low in saturated fat, trans fat and cholesterol which include: Fruits and vegetables, fiber rich grain products (like whole grain pasta and brown rice), lean meat such as chicken, fish, nuts, seeds, and legumes. (3) Eat Better. Eat small portions. Shop at the grocery with a list and do not stray from it. Tips for a healthy diet include: Limit sodium intake to less than 1500mg daily, avoid prepackaged, processed, and fast foods, choose a diet rich in fruits, vegetables, and whole grain, high fiber foods, and limit saturated & cholesterol in your diet. (4) Manage Blood Pressure. If you have high blood pressure, you should have a cuff at home so that you can check your blood pressure regularly. Be sure you have a good cuff. An arm one is generally better than a wrist one. Bring the cuff to a doctor's appointment to validate that the measurements that your cuff are taking are accurate. Take your blood pressure twice daily when you are sitting down and relaxing. Record the numbers in a log and bring this log with you to your doctors' appointments. (5) Lose Weight if your BMI is above 25. A healthy BMI is between 19-25. To ca lculate Your BMI, you may use a Standard BMI Calculator on the NIH BMI website: <www.nhlbi.nih.gov/guidelines/obesity/BMI/bmicalc.htm>. Weigh oneself daily. If you are overweight, set a goal to lose weight. A pound a week loss if needed is a good target. (6) Reduce Blood Sugar. Limit foods and liquids with "added sugars." (Added sugars include sucrose, fructose, glucose, maltose, dextrose, high fructose corn syrup, corn syrup, concentrated fruit juice and honey). (7) Stop Smoking. If you smoke, quitting smoking is one of the best things that you can do for your health. Smoking increases your risk of heart attack, stroke, and peripheral vascular disease, which is a build-up of plaque in your arteries. Please discard all the cigarettes and lighters in your house. Have a plan for what you will do when you have the urge to smoke. Direct and second- hand smoke shortens your life as well as the lives of your family, friends and others around you. For your health and the health of those around you, please consider quitting! Proper Bending Body Mechanics: Maintain a wide stance with one foot slightly in front of the other. Keep your back straight. Bend utilizing the strength in your hips and knees. Do not bend at the waist. Maintain the lifted object at your waist-level close to your body. Avoid lifting weight that causes immediately pain or pain anywhere in the body afterwards. Smoking/Nicotine If there was ever one thing that you could do to increase your overall health, decrease your risk of cardiovascular problems by about 39% the second you make the choice, it is to STOP SMOKING. Your body's most instant gratification is the second you stop smoking. We have all heard the studies, read the articles but it is true, smoking is extremely bad for your overall health, and moreover it is detrimental to your bone health. Nicotine, IN ANY FORM, kills bone cells, prevents your body from healing fractures, and significantly prolongs healing after surgery. In spine surgery specifically, it increases your risk of not healing your bones to create a fusion and increases your risk of having a revision surgery due to this up to 60%. I know it is hard. I know it feels impossible. But there are ways. Take control of your life. We are here to help you through it. And when you are ready, ask us and we can direct you to help if you desire. Use the START Plan to Quit Smoking (please visit the HelpLending a Helping Hand.org website listed below for more information): S = Set a quit date. Choose a date within the next 2 weeks, so you have enough time to prepare without losing your motivation to quit. If you mainly smoke at work, quit on the weekend, so you have a few days to adjust to the change. T = Tell family, friends, and co-workers that you plan to quit. Let your friends and family in on your plan to quit smoking and tell them you need their support and encouragement to stop. Look for a quit nathalie who wants to stop smoking as well. You can help each other get through the rough times. A = Anticipate and plan for the challenges you'll face while quitting. Most people who begin smoking again do so within the first 3 months. You can help yourself make it through by preparing ahead for common challenges, such as nicotine withdrawal and cigarette cravings. R = Remove cigarettes and other tobacco products from your home, car, and work. Throw away all your cigarettes (no emergency pack!), lighters, ashtrays, and matches. Wash your clothes and freshen up anything that smells like smoke. Shampoo your car, clean your drapes and carpet, and steam your furniture. T = Talk to your doctor about getting help to quit. Your doctor can prescribe medication to help with withdrawal and suggest other alternatives. If you can't see a doctor, you can get many products over the counter at your local pharmacy or grocery store, including the nicotine patch, nicotine lozenges, and nicotine gum. Resources for Quitting Smoking: <https://www.[place].gov/documents/nuvance health/Quit_Tobacco_Resources_fo r_patients_313480_7.pdf> Supplementation: Take recommended dosages of Vitamin D and Calcium to help fortify your bones and help them to heal. See your health maintenance packet for dosages and recommended levels. DVT/VTE prophylaxis: You will be given compression stockings from the hospital. Wear these daily for the first two weeks after surgery. You may take them off at night. You may be prescribed a medication to help thin your blood. Take this as directed. If you are not prescribed this medication, early and frequent ambulation has been shown to be the best prophylaxis to deep vein thrombosis and sequelae related to this event. Discharge Disposition: HOME WITH HOME HEALTH SERVICES
[2023-01-17] MEDS ORDERED: buPROPion XL 300 MG TAB.ER.24H PO SCH (15:00)
[2023-01-17 15:15] VITALS: BP 162/89; PULSE 72; RESP 14; TEMP 98.3
--- NOTE | 2023-01-17 15:17 | P.PN ---
Subjective Progress Note Date: 01/17/23 (delayed hcarting seen at 0945) Patient is a 57-year-old male with history of hypertension, degenerative disc disease, and anxiety who presented for revision L3 to S1 decompression and fus ion. Patient seen and examined at bedside. He is doing well. He denies any complaints currently. He states his pain is well controlled. He has already been up and walking with physical therapy. Vital signs reviewed General: nontoxic, no distress, appears at stated age Cardiovascular: S1S2 reg, no murmur, positive posterior tibial pulse bilateral, Lungs: CTA bilateral, no rhonchi, no rales , no accessory muscle use Abdominal: soft, nontender to palpation, no guarding, no appreciable orga nomegaly Ext: no gross muscle atrophy, no edema b/l lower extremities, no contractures Neuro: CN II-XI grossly intact, no focal neuro deficits Psych: Alert, oriented, appropriate affect Assessment: 57-year-old male status post L3 to S1 revision decompression and fusion. Hypertension, controlled -Continue with home diltiazem -Home medication reconciliation addressed. -He already has an outpatient follow-up appointment with his primary care provider as scheduled. -Resume home Wellbutrin and As needed Data Review: Vitals reviewed. Temperature 97.7, pulse 80, respirations 17, blood pressure 127/85, O2 sat 95% on room air Labs reviewed and hemoglobin is stable at 13.3, BUN 7.7, creatinine 0.6. Thank you for allowing us to participate in the care of this pleasant patient. Do not hesitate to contact us with questions. Someone can be reached from the [facility] hospitalist group all hours of the day at [phone] or via [employer] serve. This dictation was prepared using [employer] voice recognition software. Though every attempt is made to correct errors during dictation some may still exist. Objective - Vital Signs Vital signs: Vital Signs Temp 98.3 F 01/17/23 14:53 Pulse 72 01/17/23 14:53 Resp 14 01/17/23 14:53 BP 162/89 01/17/23 14:53 Pulse Ox 97 01/17/23 14:53 FiO2 Intake & Output 01/16/23 01/17/23 01/17/23 18:59 06:59 18:59 Intake Total 2352 Output Total 1150 5100 460 Balance 1202 -5100 -460 Weight 113.4 kg Intake: IV 2352 Output: Drainage 60 Back 60 Urine 700 5100 400 Estimated Blood Loss 450 Other: Voiding Method Toilet - Labs CBC & Chem 7: 01/17/23 05:48 01/17/23 05:48 Labs: Abnormal Lab Results - Last 24 Hours (Table) 01/17/23 01/17/23 Range/Units 05:48 05:48 RBC 3.85 L (4.40-5.60) X 10*6/uL Hct 37.9 L (39.6-50.0) % MCV 98.4 H (80.0-97.0) FL MCH 34.5 H (27.0-32.0) pg Neutrophils # 8.09 H (1.80-7.70) X 10*3/uL Eosinophils # 0 L (0.04-0.35) X 10*3/uL Anion Gap 12.90 H (4.00-12.00) mmol/L BUN 7.7 L (9.0-27.0) mg/dL Glucose 119 H (70-110) mg/dL Calcium 8.4 L (8.7-10.3) mg/dL
--- NOTE | 2023-01-18 07:51 | P.OP ---
Date of Procedure: 01/16/23 Preoperative Diagnosis: 1. ASD L3-4 WITH SPONDYLOSIS AND SEVERE STENOSIS 2. S/P L4-S1 DECOMPRESSION AND FUSION WITH LIKELY L4-5 PSEUDOARTHROSIS 3. LOW BACK PAIN 4. NEUROGENIC CLAUDICATION 5. ALS Postoperative Diagnosis: 1. ASD L3-4 WITH SPONDYLOSIS AND SEVERE STENOSIS 2. S/P L4-S1 DECOMPRESSION AND FUSION WITH LIKELY L4-5 PSEUDOARTHROSIS 3. LOW BACK PAIN 4. NEUROGENIC CLAUDICATION 5. ALS Procedure(s) Performed: 1. L3-4 POSTERIOLATERAL AND INTERBODY FUSION () 2. REVISION L4-S1 POSTERIOLATERAL FUSION (, ) 3. INSTRUMENTATION L3-S1 (35252) 4. BILATERAL LAMINECTOMY, COMPLETE FACETECTOMY AND FORAMINOTOMY L3-4 (76826) 5. INSERTION OF BIOMECHANICAL DEVICE L3-4 (59470) 6. REMOVAL OF HARDWARE L4-S1 (28661) 7. EXPLORATION OF FUSION L4-S1 (74843) 8. USE OF [employer] NAVIGATION FOR SCREW PLACEMENT (56605) USE OF IONM Implants: -GLOBUS CREO SCREW/TOREY SYSTEM -LIFE SPINE PROLIFT CAGE -MAGNATOS, ARTHROCELL, ALLOCEL FIBER, AUTOGRAFT, IFACTOR Anesthesia: GETA Surgeon: Paulo Salazar Precipitate Washer #1: Bebeto Bowman (was present for the entire case from positioning to closure) Estimated Blood Loss (ml): 450 IV fluids (ml): 2,000 Urine output (ml): 350 Pathology: none sent Condition: stable Disposition: PACU Indications for Procedure: Carlos Bolton is a 57 yo male presenting for evaluation of progressive low back pain, LE pain down to feet, progressive weakness and difficulty with ADLs due to this. It was my pleasure to have seen and examined Carlos Bolton . In our visit today we have had a chance to go over subjective complaints, physical examination findings and treatments including the natural course history without intervention and various interventional options. The patients imaging demonstrates . CT myelogram done at [facility] 11/02/2022: Images are reviewed and demonstrate adjacent segment disease at L3-L4 with vacuum disc phenomena central stenosis and foraminal stenosis due to adjacent segment disease. Facet hypertrophy also contributes. L4 5 and L5-S1 show interbody and posterior lateral fusion construct in position no complicating processes seen other than likely incomplete fusion of L4-L5. L5-S1 seems to be relatively fused. Anteriorly is questionable however posteriorly there is reasonable fusion construct. There is some haloing around the L5 screws bilaterally however. S1 screws appear intact. Some flattening of the normal lumbar lordosis is noted. No acute fracture dislocation otherwise noted. On physical exam, Carlos Bolton demonstrates low back pain with any activity, LE weakness, LE radiculopathy with tensioning signs. I have explained to the patient that as their condition progresses it will cause further neurological deficits and eventual paralysis. Based on the patients imaging, physical exam, and the rapid progression and disabling nature of their symptoms, at this time I recommend surgery in the form or a: Revision L3-S1 decompression and fusion. I discussed the risk and benefits of this procedure at length with Carlos Bolton . The patient spouse agreed to considered pursuing the procedure abovementioned. Prior to surgery, she should follow up with her PCP (Cardio, ID, IM etc) for clearance. Questions were invited and answered, and the patient wishes to proceed as outlined below. Currently, I am recommendin. Revision L3-S1 decompression and fusion Description of Procedure: L3-S1 open Decompression and fusion (avtar) Revision with MERRICK The patient was seen and examined in the preoperative area.All preoperative protocols were followed.Informed consent was obtained, risks and benefits of the procedure were discussed at length.Risks including bleeding infection damage to the surrounding tissue and risk of re-operation were discussed with the patient.Risk of anesthesia up to and including was discussed with the patient.These are outlined in the risk review.They were willing to accept these risks and all the risks of surgery.The patient was given a weight-based dose of antibiotics in the form of 2 g Ancef.The patient was seen and evaluated by the anesthesia team who deemed them fit for surgery. The site was marked, the patient was willing to proceed with the procedure. The patient was transferred to the operative suite by the Department of anesthesia. They were then drifted off to sleep by the department anesthesia and GETA was performed. The patient tolerated this well. Jeff catheter was placed by nursing staff, a-traumatically. Once confirmation of lines and ventilation the patient was transferred to a prone Leopoldo table very carefully. All bony prominences including wrists, elbows, axilla, chest, hips, and thighs, and feet were padded very well. Special attention was paid to the genitalia, and these were padded accordingly. SCDs were placed on bilateral lower extremities and were connected. Arms were well padded and placed on arm boards up and out in the 90/90 position. Once in position, again we confirmed good ventilation capabilities and that lines were running appropriately. The patients Lumbar spine was then exposed. 1010s were placed outlining the incision site. Standard alcohol was used to clean the incision site and allowed to dry. C-arm was used to needle localize the pedicles at L4-S1 and bio-brenda the patient and confirm level for incision which was marked with a skin marker. Operative briefing was performed with all teams and everyone in agreement to proceed. The patient was then prepped and draped in a normal sterile fashion. Timeout was then performed, and all parties agreed with the procedure to be performed. Midline skin incision was made over the previously bio-marked area and dissection taken down over the SP of L3-S1. L3-S1 was taken out over facet joints and TPs and a penfield 4 used to brenda the L4 pedicle. Lateral image used to confirm levels. Old hardware was identified and set screws and rods removed. There was some fluid collection around the screws so this was cultured. The area around this was debrided thoroughly with rongure and curette. Screws were tested and the b/l L4 screws were loose. All previous hardware was then removed posteriorly. Once this was accomplished, screws were proceeded to be placed b/l at pedicles from L3-S1 using [employer] Navigation. An SP clamp was used, 3D C arm spin obtained and confirmed to be accurate. Once this was confirmed screws were placed using a navigated hammad, navigated awl-tap and navigated milk tanker driver. Once screws were placed they were confirmed to be in good position using AP and Lateral fluoroscopy. The wound was then irrigated. Screws were tested and all tested above 14 mA. We then proceeded to decompression and cage placement. Attention was then turned to inter-body fusion at L3-4 since there was already a cage at L4-5 and L5-S1. Bilateral laminectomy, complete facetectomy and for aminotomy performed at L4-5 using high speed hammad and Kerrison rongure. The ligamentum was removed and dural sac decompressed. Exiting and traversing roots visualized and decompressed.Exhuberent scar tissue noted at top of L4 lamina which was still present and removed to account support associate with the decompression done below this on previous procedures. Neural elements were then protected, and disc space accessed with an osteotome. Sequential shaving then done under lateral imaging and complete discectomy performed using quinton, pituitary and curette. Once good bleeding endplates accomplished and good height worship with trials, a combination of autograft, allograft and synthetic placed anterior in the disc space. The cage was then selected and impacted into place under lateral imaging. The cage was then expanded restoring height, lordosis and alignment. The cage was backfilled with bone graft through a funnel. The hat lining paster removed and area inspected. Good cage placement, stable cage and no injuries. Area was irrigated copiously, and meticulous hemostasis achieved. The tubular retractor was then removed under direct visualization. The wound and disc spaces irrigated and meticulous hemostasis achieved. Laminectomy was completed at L4-5 as well using high speed hammad and kerrison rongure for complete decompression from L3-S1 Rods were then sized and selected and placed into S1 screws b/l. Set screws locked these in place and then sequentially reduced into L5-L3 This was accomplished. Set screws were then all placed and final tightened. A cross link was selected and placed and final tightened. TPs were then decorticated with high speed hammad. The wound was the irrigated with 3L abx ancef irrigation, 3L gentamicin irrigation and 6L NSS. Surgical was placed over the dura. Autograft and MagnatOs then placed in the posteriolateral gutters and impacted into place. Deep drain placed and secured to the skin. 2g vanco powder placed. Final images confirmed good placement of hardware and good reduction of listhesis as well as worship of height and lordosis. Facia was then closed with #1 PDS. Deep subq closed with 0 Vicryl. Superficial subq closed with 2-0 Vicryl and skin with chris. Wound edges approximated very well. Wound was then cleaned with alcohol and dried. Wounds dressed with Optifoam dressings. The patient was then transferred off the table back to their hospital bed a- traumatically.Drains continued to hold suction.They were extubated by the department of anesthesia.They were then transferred to PACU in stable condition having tolerated the procedure with no complications.
== END 2023-01-17 18:22 | disposition home health service (06) | DRG 455 ==
LOC: 2ORMAIN 09:51 → 4SSUR 15:47
PROVIDERS: ADMIT Orthopaedic Surgery; ATTEND Orthopaedic Surgery
PROC: 0SG0071 Fusion of Lumbar Vertebral Joint with Autologous Tissue Substitute, Posterior Approach, Posterior Column, Open Approach (ICD-10-PCS; 2023-01-16)
PROC: 0ST20ZZ Resection of Lumbar Vertebral Disc, Open Approach (ICD-10-PCS; 2023-01-16)
PROC: 01NB0ZZ Release Lumbar Nerve, Open Approach (ICD-10-PCS; 2023-01-16)
PROC: 00NY0ZZ Release Lumbar Spinal Cord, Open Approach (ICD-10-PCS; 2023-01-16)
PROC: 0SP004Z Removal of Internal Fixation Device from Lumbar Vertebral Joint, Open Approach (ICD-10-PCS; 2023-01-16)
PROC: 4A133B1 Monitoring of Arterial Pressure, Peripheral, Percutaneous Approach (ICD-10-PCS; 2023-01-16)
PROC: 4A11X4G Monitoring of Peripheral Nervous Electrical Activity, Intraoperative, External Approach (ICD-10-PCS; 2023-01-16)
PROC: 8E0WXBF Computer Assisted Procedure of Trunk Region, With Fluoroscopy (ICD-10-PCS; 2023-01-16)
PROC: 4A133J1 Monitoring of Arterial Pulse, Peripheral, Percutaneous Approach (ICD-10-PCS; 2023-01-16)
PROC: 03HY32Z Insertion of Monitoring Device into Upper Artery, Percutaneous Approach (ICD-10-PCS; 2023-01-16)
PROC: 06HN33Z Insertion of Infusion Device into Left Femoral Vein, Percutaneous Approach (ICD-10-PCS; 2023-01-16)
PROC: 0SG00AJ Fusion of Lumbar Vertebral Joint with Interbody Fusion Device, Posterior Approach, Anterior Column, Open Approach (ICD-10-PCS; principal; 2023-01-16 11:40)
DX: M96.0 Pseudarthrosis after fusion or arthrodesis (principal); M48.062 Spinal stenosis, lumbar region with neurogenic claudication; M47.26 Other spondylosis with radiculopathy, lumbar region; R29.6 Repeated falls; G89.29 Other chronic pain; F32.A Depression, unspecified; F41.9 Anxiety disorder, unspecified; M51.16 Intervertebral disc disorders with radiculopathy, lumbar region; Y83.8 Other surgical procedures as the cause of abnormal reaction of the patient, or of later complication, without mention of misadventure at the time of the procedure; Z85.828 Personal history of other malignant neoplasm of skin; Z88.0 Allergy status to penicillin; Z98.1 Arthrodesis status
CPT/HCPCS: 71045; 72100; 72131; 80048; 85025; 85610; 86850; 86900; 86901; 87070; 87075; 87205; 94760

== ENCOUNTER 2023-01-20 18:11 | Emergency (ER) | payer MEDICARE ==
[2023-01-20 18:16] VITALS: TEMP 98.5
[2023-01-20] MEDS ORDERED: SODIUM CHLORIDE 0.9% 2,000 ML IV STA (19:33)
[2023-01-20 20:44] LABS: Appearance,Urine Clear (Clear); Bilirubin,Urine Negative (Negative); Blood,Urine Negative (Negative); Color,Urine Yellow; Glucose,Urine (UA) Negative (Negative); Ketones,Urine 1+ (Negative); Leukocyte Esterase,Urine Negative (Negative); Nitrite,Urine Negative (Negative); PH, Urine 6.5 (5.0-8.0); Protein,Urine Negative (Negative); Specific Gravity,Urine 1.016 (1.001-1.035)
[2023-01-20] MEDS ORDERED: MAGNESIUM CITRATE 296 ML BOTTLE PO ONE (21:04)
--- NOTE | 2023-01-20 21:07 | ED ---
General Adult HPI - General Chief complaint: Recheck/Abnormal Lab/Rx Stated complaint: Surgery 01/16/Wound drainage Time Seen by Provider: 01/20/23 18:34 Source: patient Mode of arrival: ambulatory Limitations: no limitations - History of Present Illness Initial comments: Patient a 57-year-old male presents to emergency department for surgical site problem. Patient recently had L3 to S1 decompression fusion with Dr. Salazar he was discharged on 01/17. Yesterday he noticed bleeding from his surgical incision. States he has changed the surgical incision dressing 2 times. He denies any lightheadedness, dizziness, fatigue. Sister states his urine has been dark she has concern the blood is coming from the urine. Patient denies burning with urination, abdominal pain, nausea, vomiting. He does report constipation he has not had a bowel movement in 4 days. He is on [place] for pain. - Related Data Home Medications Medication Instructions Recorded Confirmed ALPRAZolam [Xanax] 1 mg PO TID PRN 08/04/22 01/16/23 Cyclobenzaprine [Flexeril] 10 mg PO TID 10/25/22 01/15/23 dilTIAZem HCL [dilTIAZem HCL 24Hr 180 mg PO QAM 10/25/22 01/16/23 ER (CD)] buPROPion XL [Wellbutrin XL] 300 mg PO 1500 01/15/23 01/15/23 Previous Rx's Medication Instructions Recorded Cyclobenzaprine [Flexeril] 10 mg PO TID #90 tab 01/17/23 Gabapentin 300 mg PO TID #90 cap 01/17/23 HYDROcodone/APAP 10-325MG [[place] 1 tab PO Q4-6H PRN #42 tab 01/17/23 10-325] Sennosides/Docusate Sodium [Senna 1 each PO DAILY PRN #20 capsule 01/17/23 Plus 8.6-50 mg Softgel] Sulfamethox-Tmp 800-160Mg [Bactrim 1 tab PO Q12HR 5 Days #10 tab 01/17/23 DS 800-160 mg] Allergies Allergy/AdvReac Type Severity Reaction Status Date / Time Penicillins Allergy Rash/Hives Verified 01/20/23 18:16 Review of Systems ROS Statement: Those systems with pertinent positive or pertinent negative responses have been documented in the HPI. ROS Other: All systems not noted in ROS Statement are negative. Past Medical History Past Medical History: Cancer, Hypertension, Musculoskeletal Disorder, Osteoarthritis (OA) Additional Past Medical History / Comment(s): Chronic back pain, hx skin cancer on back. History of Any Multi-Drug Resistant Organisms: None Reported Past Surgical History: Back Surgery Additional Past Surgical History / Comment(s): Back surgery X3 with fusions and rods, basal cell carcinoma removed from back. Past Anesthesia/Blood Transfusion Reactions: Postoperative Nausea & Vomiting (PONV) Past Psychological History: Anxiety, Depression Smoking Status: Never smoker, Second hand smoke exposure Past Alcohol Use History: Occasional Past Drug Use History: None Reported - Past Family History Mother Family Medical History: No Reported History General Exam Limitations: no limitations General appearance: alert, in no apparent distress Head exam: Present: atraumatic, normocephalic, normal inspection Eye exam: Present: normal appearance, PERRL, EOMI. Absent: scleral icterus, conjunctival injection, periorbital swelling ENT exam: Present: mucous membranes dry Respiratory exam: Present: normal lung sounds bilaterally. Absent: respiratory distress, wheezes, rales, rhonchi, stridor Cardiovascular Exam: Present: regular rate, normal rhythm, normal heart sounds. Absent: systolic murmur, diastolic murmur, rubs, gallop, clicks Back exam: Present: other (surgical incision healing nicely no surrounding erythema swelling minimal blood leakage from superior aspect of wound with 3 by 2 cm hematoma palpated. Unable to express blood. ) Neurological exam: Present: alert, oriented X3, CN II-XII intact Psychiatric exam: Present: normal affect, normal mood Skin exam: Present: warm, dry, intact, normal color. Absent: rash Course Vital Signs 01/20/23 01/20/23 18:13 21:41 Temperature 98.5 F Pulse Rate 79 84 Respiratory 20 18 Rate Blood Pressure 129/76 140/82 O2 Sat by Pulse 99 96 Oximetry Medical Decision Making - Medical Decision Making Was pt. sent in by a medical professional or institution (, PA, FLAGGER, urgent care, hospital, or snf...) When possible be specific @ -No Did you speak to anyone other than the patient for history (EMS, parent, family, police, friend...)? What history was obtained from this source @ -sister expressed concern about dark urine Did you review nursing and triage notes (agree or disagree)? Why? @ -I reviewed and agree with nursing and triage notes Were old charts reviewed (outside hosp., previous admission, EMS record, old EKG, old radiological studies, urgent care reports/EKG's, snf records)? Report findings @ -No old charts were reviewed Differential Diagnosis (chest pain, altered mental status, abdominal pain women, abdominal pain men, vaginal bleeding, weakness, fever, dyspnea, syncope, headache, dizziness, GI bleed, back pain, seizure, CVA, palpatations, mental health)? @ -not applicable EKG interpreted by me (3pts min.). @ -None X-rays interpreted by me (1pt min.). @ -None done CT interpreted by me (1pt min.). @ -None done U/S interpreted by me (1pt. min.). @ -None done What testing was considered but not performed or refused? (CT, X-rays, U/S, labs)? Why? @ -None What meds were considered but not given or refused? Why? @ -None Did you discuss the management of the patient with other professionals (professionals i.e. , PA, FLAGGER, lab, RT, psych nurse, social sciences lecturer, marine welder, teacher, chief risk officer, adult protective caseworker)? Give summary @ -No Was smoking cessation discussed for >3mins.? @ -No Was critical care preformed (if so, how long)? @ -No Were there social determinants of health that impacted care today? How? (Homelessness, low income, unemployed, alcoholism, drug addiction, transportation, low edu. Level, literacy, decrease access to med. care, senior care, rehab)? @ -[No] Was there de-escalation of care discussed even if they declined (Discuss DNR or withdrawal of care, Hospice)? DNR status @ -[No] What co-morbidities impacted this encounter? (DM, HTN, Smoking, COPD, CAD, Cancer, CVA, ARF, Chemo, Hep., AIDS, mental health diagnosis, sleep apnea, morbid obesity)? @ -[None] Was patient admitted / discharged? Hospital course, mention meds given and route, prescriptions, significant lab abnormalities, going to OR and other pertinent info. @ -Patient presenting for bleeding from surgical wound. The surgical incision healing nicely no surrounding erythema or swelling. There is minimal blood leakage from superior aspect of wound with 3 by 2 cm hematoma palpated. Unable to express blood. It was redressed in pressure bandage we discussed wound care in detail. Urinalysis reveals 1+ ketones likely related to dehydration. No hematuria. Patient was given a large fluid bolus. He did not have any further bleeding from surgical wound. He is in stable medical condition for discharge. He will increase fluid intake at home will be discharged with magnesium citrate. He will follow-up with Dr. Salazar. We discussed return parameters. Undiagnosed new problem with uncertain prognosis? @ -[No] Drug Therapy requiring intensive monitoring for toxicity (Heparin, Nitro, Insulin, Cardizem)? @ -[No] Were any procedures done? @ -[No] Diagnosis/symptom? @ -bleeding from wound, constipation, hematoma Acute, or Chronic, or Acute on Chronic? @ -acute Uncomplicated (without systemic symptoms) or Complicated (systemic symptoms)? @ -uncomplicated Side effects of treatment? @ -[No] Exacerbation, Progression, or Severe Exacerbation? @ -[No] Poses a threat to life or bodily function? How? (Chest pain, [place], ND, pneumonia, PE, COPD, DKA, ARF, appy, cholecystitis, CVA, Diverticulitis, Homicidal, Suicidal, threat to staff... and all critical care pts) @No Dr. Centeno is my attending - Lab Data Lab Results 01/20/23 Range/Units 19:53 Urine Color Yellow Urine Appearance Clear (Clear) Urine pH 6.5 (5.0-8.0) Ur Specific [place] 1.016 (1.001-1.035) Urine Protein Negative (Negative) Urine Glucose (UA) Negative (Negative) Urine Ketones 1+ H (Negative) Urine Blood Negative (Negative) Urine Nitrite Negative (Negative) Urine Bilirubin Negative (Negative) Urine Urobilinogen 8.0 (<2.0) mg/dL Ur Leukocyte Esterase Negative (Negative) Disposition Clinical Impression: Constipation, Bleeding from wound, Hematoma Disposition: HOME SELF-CARE Condition: Good Instructions (If sedation given, give patient instructions): Constipation (ED), Hematoma (ED) Additional Instructions: Increase water intake. Keep pressure bandage on surgical incision and change dressing once saturated or every 24 hours. Follow up with Dr. Salazar in 1-2 days. Return to the emergency Department if you experience new, concerning, or worsening symptoms, including but not limited to, increased bleeding or pain. Is patient prescribed a controlled substance at d/c from ED?: No Referrals: Tony Ignacio DO [Primary Care Provider] - 1-2 days
[2023-01-20 21:42] VITALS: BP 140/82; PULSE 84; RESP 18
== END 2023-01-20 21:42 | disposition home or self-care (01) ==
LOC: EC 18:11
DX: S30.0XXA Contusion of lower back and pelvis, initial encounter (principal); X58.XXXA Exposure to other specified factors, initial encounter
CPT/HCPCS: 81003; 96360; 99283